=== PATIENT | female | born 1940 | race Caucasian/White ===

== ENCOUNTER 2020-07-21 02:13 | Inpatient (IN) | payer MEDICARE, OTHER, SELFPAY ==
[2020-07-21] VITALS (12 sets, daily range): BP systolic 133–185; BP diastolic 65–102; PULSE 86–106; RESP 17–20; TEMP 36.7–37.6; O2SAT 90–99
--- NOTE | 2020-07-21 02:31 | P.HP_ITS ---
Providers/Chief Complaint Admitting Physician: Mojgan Shaw MD Chief Complaint: bowell obstruction History of Present Illness Molly Rolle is a 80 year old female who presents today from [facility]. Patient is stating that she has had femoral hernia for last 4 years which she is attributing to her fairly active lifestyle, for last few days she has been expressing right lower quadrant pain, she also noticed some abdominal cramps with nausea and today around evening she had 1 episode of emesis. It was bilious. She did not notice any fever shortness of breath chest pain dysuria diarrhea. Her last bowel movement was today, she is able to pass flatus. Because of these concerns she went to the [facility] where CT scan revealed right femoral hernia, with small bowel loop, SBO transitioning at right femoral hernia. She was transferred to our hospital for further evaluation. Patient is denying previous history abdominal surgeries, she never experienced any bowel obstruction before. She is endorsing unintentional weight loss 15 to 20 pounds in last 6 months endorsing night sweats as well, he has never been diagnosed with any cancer her colonoscopies have been benign. At the other facility she received 1 L normal saline and fentanyl. I requested them to place NG tube to low intermittent suction. At the time of my evaluation patient was endorsing feeling better. No active abdominal pain. Nasogastric tube suctioning light brown content. Labs were reviewed which showed mild hypokalemia creatinine 1.13 otherwise unremarkable labs troponin not significant lipase 55, UA unremarkable, I will get lactic acid, will place general surgery consult Review of Systems Const: Reports: chills, body aches, change in appetite, change in weight and fatigue; Denies: fever(s) Eyes: Denies: change in vision ENMT: Denies: throat pain Card: Denies: chest pain Resp: Denies: dyspnea GI: Reports: abdominal pain, nausea, vomiting and change in bowel habits; Denies: diarrhea or constipation : Denies: flank pain Musc: Denies: neck pain Skin/Breast: Denies: rash Neuro: Denies: headache(s) Psych: Reports: anxiety Endo: Denies: polyuria Antelmo/Lymph: Denies: easy bruising All/Imm: Denies: urticaria Medications/Allergies Allergies Allergy/AdvReac Type Severity Reaction Status Date / Time No Known Allergies Allergy Verified 07/21/20 02:57 PFSH Acute PFSH: Medical History Anxiety Diverticulitis Dyslipidemia Femoral hernia Hypertension Melanotic stools Osteoporosis Surgical History Hx of colonoscopy Family History Denies family history of CAD (coronary artery disease) Social History Smoking and tobacco status: never smoked Alcohol intake: never Substance/Drug Use: never Household members: spouse Housing: House Physical Exam Narrative: EXAM NARRATIVE: Very pleasant elderly female Currently not in any active distress Has nasogastric tube to low intermittent suction draining brown content At the time evaluation she was in semi-Hendrix position saturating well on room air No active distress S1, S2 no tachycardia heart failure or murmur noted No acute respiratory distress, bilateral good airflow without adventitious rhonchi or crackles Abdomen soft mild tenderness on deep palpation in right lower quadrant area and periumbilical region, no active signs of peritonitis Right femoral hernia noted with bowel loop, nonreproducible, nontender on palpation, no pulsation around femoral hernia content Lower extremity no edema gangrene ulcer Appropriate mood and affect Clinically looks dehydrated A&P Assessment and plan (1) Small bowel obstruction: Status: Acute (2) Femoral hernia: Status: Acute Additional A&P Information Small bowel obstruction with transition point at right femoral hernia No active signs of incarcerated hernia Mild lower right lower quadrant pain with hyperactive bowel sounds We will check lactic acid, general surgery consult in the morning N.p.o., NG to low intermittent suction No previous history of abdominal surgeries patient is endorsing unintentional weight loss, night sweats and benign previous colonoscopies, she does carry history of diverticulosis/diverticulitis Conservative management for now with close monitoring Essential hypertension: Hold oral antihypertensives, would use IV as needed antihypertensives if needed Anxiety/depression: No acute exacerbation AMALIA which I think is secondary to dehydration Anticipating improvement with fluid resuscitation Full code DVT prophylaxis: SCDs would avoid anticoagulation in case she would require any surgical intervention N.p.o. Attestations Medical Necessity Statement*: Anticipating stay in the hospital to cross more than 2 midnights continued evaluation for femoral hernia with small bowel obstruction will need general surgery consult in the morning Time Spent in Patient Care: (>than 50% of time spent in counselling and/or direct pt care on unit) . 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
[2020-07-21] MEDS: dextrose 5%-sod chloride 0.9% 1,000 ML 75 ML IV ×2 (03:10→16:01)
[2020-07-21] MEDS: enoxaparin 40 mg/0.4 mL Syringe SUBCUT (03:13)
[2020-07-21 05:14] LABS: Basophils % 0.2 %; Hematocrit 45.5 % (37.0-47.0); Hemoglobin 14.7 g/dL (11.5-15.3); Lymphocytes # 0.9 10^3/uL (0.8-4.8); Lymphocytes % 8.1 %; Mean Corpuscular HGB Conc 32.3 g/dL (30.0-36.0); Mean Corpuscular Hemoglobin 30.1 pg (28.0-34.0); Mean Corpuscular Volume 93.2 fL (81-99); Monocytes # 0.6 10^3/uL (0.2-0.9); Monocytes % 5.4 %; Neutrophils # 9.07 10^3/uL (1.8-7.7); Neutrophils % 86.1 %; Nucleated Red Blood Cells % 0 %; Platelet Count 273 10^3/cmm (130-400); Red Blood Count 4.88 10^6/uL (4.1-5.3); Red Cell Distribution Width 13.2 % (12.1-15.1); White Blood Count 10.5 10^3/uL (4.0-10.0)
[2020-07-21 05:43] LABS: Lactate (Lactic Acid level) 1.5 mmol/L (0.5-2.2)
[2020-07-21 05:45] LABS: Alanine Aminotransferase 13 U/L (0-33); Alkaline Phosphatase 78 IU/L (35-105); Anion Gap 12.9 (5-19); Aspartate Amino Transferase 19 U/L (0-32); Blood Urea Nitrogen 21 mg/dL (8-23); Carbon Dioxide 30 mmol/L (22-29); Chloride 100 mmol/L (98-107); Globulin 2.6 g/dL (1.3-4.6); Glucose 148 mg/dL (65-115); Osmolality Calculated 294 mOsm/kg (285-295); Potassium 3.9 mmol/L (3.5-5.1); Sodium 139 mmol/L (136-145); Total Bilirubin 0.4 mg/dL (0.15-1.2); Total Protein 6.6 g/dL (6.6-8.7)
[2020-07-21 07:24] LABS: Erythrocyte Sedimentation Rate 6 mm/hr (0-15)
--- NOTE | 2020-07-21 09:09 | XR_ITS ---
WS: [id number] XR abdomen min 2V 25566 REASON FOR EXAM: POSSIBLE SBO FINDINGS: Nasogastric tube is in place the tip is in the position consistent with the body of the stomach. There is some gas in the colon with a moderate amount of stool. There is gas in the rectum. There are multiple dilated small bowel loops containing both air and fluid. There is residual contrast in the bladder and within the right renal collecting system proximal to a relative UPJ stenosis. XR/XR abdomen min 2V 26656 IMPRESSION: Bowel gas pattern compatible with distal small bowel obstruction.
--- NOTE | 2020-07-21 09:31 | PM.CONSULT ---
Providers/Reason For Consult Consulting Physican/Specialty*: Michell Hitchcock Reason for Consult*: Small bowel obstruction Attending Physician: Michell Hitchcock History of Present Illness History of Present Illness Molly Rolle is a 80 year old female who has had a swelling in the right groin for a few years but has never been symptomatic. She states she started noticing a bulge in the right groin which would not reduce and was associated with pain, nausea and vomiting since yesterday. The pain did not radiate, no aggravating or relieving factors. The pain is described as sharp. Review of Systems General: Reports: 10 or more systems reviewed and unremarkable except in HPI and below Meds/Allergies Home Medications and Allergies Allergies Allergy/AdvReac Type Severity Reaction Status Date / Time No Known Allergies Allergy Verified 07/21/20 02:57 Current Medications Current Medications Generic Name Dose Route Start Last Admin Trade Name Freq PRN Reason Stop Dose Admin Dextrose/Sodium Chloride 1,000 mls @ 75 mls/hr 07/21/20 02:30 07/21/20 03:10 Dextrose 5%-Sod Chloride 0.9% IV 75 mls/hr .[id number] SAM Administration PFSH Acute PFSH: Medical History Anxiety Diverticulitis Dyslipidemia Femoral hernia Hypertension Osteoporosis Surgical History Hx of colonoscopy Family History Denies family history of CAD (coronary artery disease) Social History Smoking and tobacco status: never smoked Alcohol intake: never Substance/Drug Use: never Household members: spouse Housing: House Vitals/I&O/Wt Last Vital Signs Temp 99.2 F 07/21/20 07:23 Pulse 104 H 07/21/20 07:23 Resp 18 07/21/20 07:23 BP 152/65 07/21/20 07:23 Pulse Ox 95 07/21/20 07:23 07/20/20 07/21/20 07/21/20 22:59 06:59 14:59 Output Total 100 / 100 300 / 300 Balance -100 / -100 -300 / -300 Weight last 48 hrs Weight 128 lb 6 oz Physical Exam Narrative: EXAM NARRATIVE: HEENT: Normocephalic Eye: Sclera /conjunctiva normal Respiratory and chest: Bilateral clear breath sounds on auscultation Cardiovascular: Normal S1 and S2 heart sounds Abdomen: Soft to palpation, incarcerated right femoral hernia, no overlying skin changes, no guarding or rigidity, rest of the abdomen is soft Neurological: Oriented to place person and time Skin: Intact, no lesions appreciated on gross exam A&P Assessment and plan (1) Small bowel obstruction: Small bowel obstruction secondary to incarcerated right femoral hernia Continue NG tube to low intermittent suction Abdominal series today Status: Acute (2) Femoral hernia: Plan for open repair of right femoral hernia with possible bowel resection today Procedure, risks, benefits and alternatives have been discussed with the patient who wishes to proceed with surgery. 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
--- NOTE | 2020-07-21 10:41 | PC.NURSE ---
1040-PT REQUESTED I CALL HER DAUGHTER HALEY TO LET HER KNOW THAT SHE IS HAVING SURGERY TODAY AROUND 11, ATTEMPTED TO CONTACT HER..NO ANSWER.
--- NOTE | 2020-07-21 10:46 | PC.CHAP ---
Pastoral Care Encounter/Spiritual Assessment Type of Contact [] Declined sem manager visit [] Patient/Family/Request visit [] Outpatient visit [x] Follow-up visit [] Physician referral [] Code/Alert [] Routine visit [] Staff referral [] Actively dying [] Patient sleeping [] Family support [] [] Out of room [] Palliative care [] [] Receiving care in room [] Pre-surgical visit [] Trauma [] Long length of stay [] ICU visit [] Other: Relational/Emotional Strength [] Patient feels connected with others/family/visitors/staff [] Distress [] Loneliness/isolation [] Abandonment Spirituality of Patient [] Person of Stephanie [] Attends Alevism of their Stephanie [] Believes in Prayer [] Reads Bible or Gnosticism materials [] There are Spiritual issues to be addressed Senior Benefits Specialist Interventions [] Prayer [] Active listening [] Non-anxious presence [] Spiritual/emotional support [] Crisis/trauma care [] Spiritual counseling [] Bereavement support [] Provided bereavement packet [] Provided Bible/devotional materials [] Provided toy/stuffed animal, coloring book to patient or family member [] Provided Communion [] Anointing/[place] [] Salvation [] Completed spiritual assessment [] Other: Impact on Illness or Injury [] Angry [] Fearful [] Anxious [] Often cries [] Exhaustion [] Unable to work [] Unable to attend methodist [] Unable to walk/stand [] Unable to read [] Unable to drive [] Unable to eat/drink [] Unable to sleep [] Unable to be with family [] Patient intubated [] Other: Summary Follow-up visit Time spent with patient 5 mins
[2020-07-21] MEDS: sodium chloride 0.9% 1,000 ML 30 ML IV (16:59)
--- NOTE | 2020-07-21 17:01 | PC.NURSE ---
PT OFF UNIT FOR SURGERY
--- NOTE | 2020-07-21 17:06 | ANES.PREANE2 ---
Pre-Anesthetic Assessment Pre-Anesthetic Assessment: Height/Weight: Weight 58.23 kg Temp Pulse Resp BP Pulse Ox 98.0 F 103 H 18 156/102 97 07/21/20 15:20 07/21/20 17:00 07/21/20 17:00 07/21/20 17:00 07/21/20 17:00 Preop Diagnosis: Incarcerated right femoral hernia Proposed Procedure: Operation Date: 07/21/20 17:10 Proposed Procedures p Incisional Hernia Repair(Right) - Alfonzo Horton MD Was Beta Marlena taken within 24 hours: N/A Last intake: Intake Last Liquid Date 07/20/20 Last Liquid Time 14:00 Last Solid Date 07/20/20 Last Solid Time 14:00 Social: Social History: No alcohol and No tobacco Exam: Pre-Anes Outpt Exam: alert, oriented x 3, clear to auscultation bilaterally and regular rate & rhythm Airway: Submandibular: WNL Cervical ROM: WNL MP: 2 Additional comments: Poor dentition, upper denture, lower missing several Pulmonary: Pulmonary: None reported CV/HEM: CV/HEM: HTN : : None reported Hepatic: Hepatic: None reported GI: Comments: incarcerated hernia--NG tube Metabolic: Metabolic: None reported Musc/skel: Musc/skel: None reported Neuropsych: Neuropsych: Depression Anesthetic Plan: ASA status: 3 Anesthesia: General Other: Mod RSI Risk of > 500 ml blood loss (7ml/kg in children): No Meds/Allergies Current Medications: Current Medications Generic Name Dose Route Start Last Admin Trade Name Freq PRN Reason Stop Dose Admin Dextrose/Sodium Ch loride 1,000 mls @ 75 ml s/hr 07/21/20 02:30 07/21/20 16:01 Dextrose 5%-Sod Chloride 0.9% IV 75 mls/hr .[id number] SAM Administration Sodium Chloride 1,000 mls @ 30 ml s/hr 07/21/20 16:45 07/21/20 16:59 Sodium Chloride 0.9% IV 07/22/20 16:44 30 mls/hr .Q24H SAM Administration PFSH Anesthesia PFSH: Medical History Anxiety Diverticulitis Dyslipidemia Femoral hernia Hypertension Osteoporosis Surgical History Hx of colonoscopy Family History Denies family history of CAD (coronary artery disease) Social History Smoking and tobacco status: never smoked Alcohol intake: never Substance/Drug Use: never Household members: spouse Housing: House Data Anesthesia CBC & Chem 7: 07/21/20 05:01 07/21/20 05:01 Other Labs: Laboratory Results - last 48 hr 07/21/20 07/21/20 07/21/20 05:01 05:01 05:01 WBC 10.5 H RBC 4.88 Hgb 14.7 Hct 45.5 MCV 93.2 MCH 30.1 MCHC 32.3 RDW 13.2 Plt Count 273 MPV 10.0 Neut % (Auto) 86.1 Lymph % (Auto) 8.1 [place] % (Auto) 5.4 Eos % (Auto) 0.0 Baso % (Auto) 0.2 Neut # (Auto) 9.07 H Lymph # (Auto) 0.9 [place] # (Auto) 0.6 Eos # (Auto) 0.0 Baso # (Auto) 0.0 Nucleated RBC % (auto) 0 Nucleated RBCs # 0.0 ESR Sodium 139 Potassium 3.9 Chloride 100 Carbon Dioxide 30 H Anion Gap 12.9 BUN 21 Creatinine 0.9 GFR Calculation Not Reportable Glucose 148 H Calculated Osmolality 294 Lactate 1.5 Calcium 9.0 Total Bilirubin 0.4 AST 19 ALT 13 Alkaline Phosphatase 78 Total Protein 6.6 Albumin 4.0 Globulin 2.6 07/21/20 05:01 WBC RBC Hgb Hct MCV MCH MCHC RDW Plt Count MPV Neut % (Auto) Lymph % (Auto) [place] % (Auto) Eos % (Auto) Baso % (Auto) Neut # (Auto) Lymph # (Auto) [place] # (Auto) Eos # (Auto) Baso # (Auto) Nucleated RBC % (auto) Nucleated RBCs # ESR 6 Sodium Potassium Chloride Carbon Dioxide Anion Gap BUN Creatinine GFR Calculation Glucose Calculated Osmolality Lactate Calcium Total Bilirubin AST ALT Alkaline Phosphatase Total Protein Albumin Globulin Cardiac Studies: No Data to Display
--- NOTE | 2020-07-21 21:38 | P.OP_ITS ---
Operative Report Date of procedure: July 21, 2020 Pre-op Diagnosis: Incarcerated right femoral hernia Post-op Diagnosis: Incarcerated right femoral hernia with bowel obstruction No evidence of ischemia Procedure Done: Open repair of right femoral hernia with Bard soft mesh Specimens removed/disposition: Hernia sac Surgeon: Alfonzo Horton Anesthesia: General Condition: stable Disposition: PACU Procedure: A 5 cm incision was made over the right inguinal canal extending inferior to the inguinal ligament using 15 blade, the subcutaneous tissue, Timothy's fascia divided using electrocautery until the external oblique ap oneurosis was identified. Using a 15 blade, a small opening was made in the external oblique aponeurosis along the length of the fibers, this was grasped with hemostats and opened using Metzenbaum scissors medially to the external ring and laterally beyond the internal ring. The round ligament was identified and dissected free from the wall of the inguinal canal. The transversalis fascia was opened to identify the hernia sac which was dissected free from the femoral vein and artery laterally. The femoral hernia sac was dissected free from the surrounding subcutaneous tissue inferior to the inguinal ligament and the sac was opened. The sac was reduced through the inguinal canal and opened, the dilated small bowel and the collapsed small bowel was identified with a transition point noted. There was no signs of bowel ischemia noted. The hernia sac was excised and closed with pursestring 2-0 Vicryl suture. The inguinal ligament was approximated to the pectineal fascia using running 2-0 Prolene suture and was reinforced with the small Bard plug. The Bard mesh was placed on the posterior wall of the inguinal canal and a few 2-0 Prolene sutures were placed over the internal oblique muscles. The inferior edge of the mesh was extended into the preperitoneal space to cover the femoral defect. And using 2- 0 Prolene suture the medial edge of the mesh were sutured to the fascia o verlying the pubic tubercle. The wound was copiously irrigated with saline, good hemostasis noted and the external oblique aponeurosis was closed with running 2-0 Vicryl suture, Timothy's fascia approximated using running 3-0 Vicryl suture, and skin was closed using running subcuticular 4-0 Monocryl suture and Dermabond. 20 mL of 0.5% Marcaine was infiltrated around the incision.
--- NOTE | 2020-07-21 21:45 | SUR.PHASEI ---
PT SLEEPY BUT AWAKES TO VOICE PT ON RA TRIAL NG TO RT NARE TAPED SECURELY, RT LOWER ABD INC D/I PT WITH GOOD RESP EFFORT PT PREFERS MASK OFF SATS MAINTAINED AT 93% PT THEN PLACED ON 3LNC SATS QUICKLY UP TO 95%
--- NOTE | 2020-07-21 22:27 | SUR.PHASEI ---
2210 PT TO FLOOR PER CART PT AWAKE ALERT MOVES SELF TO BED WITH ASSIST OF 2 NURSES, PT NG INTACT AND SECIURELY TAPED AND CLAMPED , ABD FLAT SOFT DRESSING OF EXOFIN D/I SCDS ON HANDOFF AT BEDSIDE.
[2020-07-21] MEDS: famotidine 20 mg/2 mL INJ IVP (23:04)
[2020-07-21] MEDS: D5-NS 0.45% + KCL 20 mEq 20 MEQ/1,000 ML BAG 100 MEQ IV (23:14)
[2020-07-21] MEDS: lactulose oral liq 20 gm/30 mL UDC 10 GM PO (23:15)
[2020-07-21] MEDS: metroNIDAZOLE IV 500 MG/100 ML PREMIX 100 MG IV (23:16)
[2020-07-22] VITALS (10 sets, daily range): BP systolic 123–171; BP diastolic 67–76; PULSE 82–98; RESP 17–18; TEMP 36.8–37.5; O2SAT 93–97
[2020-07-22 04:05] LABS: Basophils % 0.2 %; Hematocrit 43.1 % (37.0-47.0); Hemoglobin 13.6 g/dL (11.5-15.3); Lymphocytes # 0.8 10^3/uL (0.8-4.8); Mean Corpuscular HGB Conc 31.6 g/dL (30.0-36.0); Mean Corpuscular Volume 94.9 fL (81-99); Mean Platelet Volume 10.3 fL (7.4-10.4); Monocytes # 1.2 10^3/uL (0.2-0.9); Monocytes % 11.7 %; Neutrophils % 79.8 %; Nucleated Red Blood Cells % 0 %; Platelet Count 206 10^3/cmm (130-400); Red Blood Count 4.54 10^6/uL (4.1-5.3); Red Cell Distribution Width 13.3 % (12.1-15.1); White Blood Count 9.9 10^3/uL (4.0-10.0)
[2020-07-22 04:39] LABS: Blood Urea Nitrogen 16 mg/dL (8-23); Calcium 8.2 mg/dL (8.5-10.5); Carbon Dioxide 26 mmol/L (22-29); Chloride 107 mmol/L (98-107); Glucose 169 mg/dL (65-115); Osmolality Calculated 295 mOsm/kg (285-295); Sodium 140 mmol/L (136-145)
[2020-07-22] MEDS: ceFAZolin 1,000 MG in sodium chloride 0.9% (plus) 50 ML 100 MG IV ×2 (04:50→13:26)
--- NOTE | 2020-07-22 05:57 | ANE.PACU2 ---
Inpatient post-anesthesia follow up: Airway intact: Yes Vital signs: Temperature 98.2 F Pulse Rate 93 Respiratory Rate 18 Blood Pressure 147/67 Pulse Oximetry 96 Oxygen Delivery Me thod Room Air Oxygen Flow Rate 3 Fraction of Inspir ed Oxygen Hydration adequate: Yes Nausea and vomiting: No Pain level: 1 Mental status: Baseline
[2020-07-22] MEDS: metroNIDAZOLE IV 500 MG/100 ML PREMIX 100 MG IV (06:48)
[2020-07-22] MEDS: lactulose oral liq 20 gm/30 mL UDC 10 GM PO ×3 (11:46→21:39)
[2020-07-22] MEDS: famotidine 20 mg/2 mL INJ IVP ×2 (11:46→21:37)
[2020-07-22] MEDS: D5-NS 0.45% + KCL 20 mEq 20 MEQ/1,000 ML BAG 100 MEQ IV (11:47)
--- NOTE | 2020-07-22 12:22 | P.PN_ITS ---
Subjective Subjective: Interval history: Patient was feeling uncomfortable Wanting NG out low grade temp no respiratory complaints. Vitals/I&O/Wt Last Vital Signs Temp 99.2 F 07/22/20 15:34 Pulse 98 07/22/20 15:34 Resp 18 07/22/20 15:34 BP 171/72 07/22/20 15:34 Pulse Ox 93 07/22/20 15:34 07/22/20 07/22/20 07/22/20 06:59 14:59 22:59 Intake Total 151.667 / 1175.417 998.333 / 998.333 Output Total 500 / 810 500 / 500 Balance -348.333 / 365.417 498.333 / 498.333 Weight last 48 hrs Weight 58.23 kg Physical Exam Narrative: EXAM NARRATIVE: General : alert awake oriented NAD HEENT : NG in place Chest : Non-labored respiration CVS : NSR ABD- Post Op ext - No edema Data : 07/22/20 03:42 07/22/20 03:42 A&P Assessment and plan (1) Incarcerated femoral hernia: Status: Acute (2) Hypertension: Status: Acute (3) Anxiety: Status: Acute Incarcerated Femoral hernia S/p Open femoral hernia with mesh - POD 1 - NG clamped however patient pulled - Continue CLD - Post op management per surgery - Started on lactulose 15cc/BID / Fleet enema/ mag citrate x 1 - Pain control - Continue IVF ) D5 - 0.45 at 100 cc/hr - Can wean fluid as diet improves. Hypertension - Losartan 50 mg Po daily restarted Anxiety - Paroxetine 40 mg PO daily Gi ppx - Pepcid 20 mg IV BID DVT ppx - SCDS only - Start heparin if ok with surgery Attestations Medical Necessity Statement*: Continue hospitalization for post op care. 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
--- NOTE | 2020-07-22 12:30 | PC.CHAP ---
Pastoral Care Encounter/Spiritual Assessment Type of Contact [] Declined double back operator visit [] Patient/Family/Request visit [] Outpatient visit [] Follow-up visit [] Physician referral [] Code/Alert [xx] Routine visit [] Staff referral [] Actively dying [] Patient sleeping [] Family support [] [] Out of room [] Palliative care [] [] Receiving care in room [] Pre-surgical visit [] Trauma [] Long length of stay [] ICU visit [] Other: Relational/Emotional Strength [] Patient feels connected with others/family/visitors/staff [] Distress [] Loneliness/isolation [] Abandonment Spirituality of Patient [xx] Person of Stephanie [] Attends Synagogue of their Stephanie [xx] Believes in Prayer [] Reads Bible or Yarsanism materials [] There are Spiritual issues to be addressed Bush Regenerator Interventions [xx] Prayer [xx] Active listening [xx] Non-anxious presence [] Spiritual/emotional support [] Crisis/trauma care [] Spiritual counseling [] Bereavement support [] Provided bereavement packet [] Provided Bible/devotional materials [] Provided toy/stuffed animal, coloring book to patient or family member [] Provided Communion [] Anointing/[place] [] Salvation [xx] Completed spiritual assessment [] Other: Impact on Illness or Injury [] Angry [] Fearful [] Anxious [] Often cries [] Exhaustion [xx] Unable to work [xx] Unable to attend rastafarian [] Unable to walk/stand [] Unable to read [xx] Unable to drive [] Unable to eat/drink [] Unable to sleep [xx] Unable to be with family [] Patient intubated [] Other: Summary Short visit/prayer as Doctor arrived to check on her. Time spent with patient 3 minutes
[2020-07-22] MEDS: magnesium citrate Btl 296 mL 150 ML PO (16:51)
[2020-07-22] MEDS: Fleet Enema 133 mL Enema PR (16:52)
--- NOTE | 2020-07-22 17:01 | PM.PN ---
Subjective Subjective: Interval history: Patient denies any nausea or vomiting, no flatus or BM, has some right lower quadrant pain Vitals/I&O/Wt Last Vital Signs Temp 99.2 F 07/22/20 15:34 Pulse 98 07/22/20 15:34 Resp 18 07/22/20 15:34 BP 171/72 07/22/20 15:34 Pulse Ox 93 07/22/20 15:34 07/22/20 07/22/20 07/22/20 06:59 14:59 22:59 Intake Total 151.667 / 1175.417 998.333 / 998.333 Output Total 500 / 810 500 / 500 Balance -348.333 / 365.417 498.333 / 498.333 Weight last 48 hrs Weight 128 lb 6 oz Physical Exam Narrative: EXAM NARRATIVE: Abdomen: Soft, mildly tender, nondistended, incision clean dry and intact right inguinal canal Data : 07/22/20 03:42 07/22/20 03:42 A&P Assessment and plan (1) History of femoral hernia repair: 80-year-old female status post open femoral hernia repair with mesh for incarcerated hernia causing small bowel obstruction, currently stable Clamp NG tube Start clear liquid diet Ambulate ad isabel. Continue IV fluids Lactulose 15 cc p.o. twice daily Fleets enema today 1 bottle of magnesium citrate Patient will need greater than 2 nights of inpatient stay Status: Acute Attestations Medical Necessity Statement*: Small bowel obstruction requiring continued inpatient stay Coding Level of Care Code Acute Hospice Admitting Clerk for Mirian Callejas Diagnoses History of femoral hernia repair Z98.890; Z87.19
--- NOTE | 2020-07-22 17:56 | PC.NURSE ---
ng tube form tamper reported that pt was holding ng tube and c/o it falling put and pt pushing it back in movie writer entered room to pt holding ng in hand barley in nose. ng was finished taken out. messaged and called Dr. Horton and Dr. Hitchcock, no response. pt received laxatives and enema with results of a moderate dark formed stool
[2020-07-22] MEDS: diphenhydrAMINE 50 mg/mL SDV 1mL 12.5 MG IVP (21:37)
[2020-07-22] MEDS: PARoxetine 20 mg Tablet 40 MG PO (21:37)
[2020-07-22] MEDS: losartan 50 mg Tablet PO (21:37)
[2020-07-22] MEDS: HYDROcodone-acetaminophen 5-325 mg Tablet 1 TAB PO (21:38)
[2020-07-23] VITALS (9 sets, daily range): BP systolic 128–155; BP diastolic 54–76; PULSE 80–94; RESP 17–20; TEMP 36.3–37.6; O2SAT 94–97
[2020-07-23] MEDS: morphine 4 mg/mL SDV 1 mL 2 MG IVP (00:10)
[2020-07-23] MEDS: haloperidol inj 5 mg/mL INJ 1 mL 2 MG IM (01:59)
[2020-07-23] MEDS: D5-NS 0.45% + KCL 20 mEq 20 MEQ/1,000 ML BAG 100 MEQ IV (04:23)
[2020-07-23 05:41] LABS: Basophils % 0.5 %; Eosinophils # 0.1 10^3/uL (0.0-0.8); Eosinophils % 2.2 %; Hematocrit 37.2 % (37.0-47.0); Hemoglobin 11.5 g/dL (11.5-15.3); Lymphocytes # 1.2 10^3/uL (0.8-4.8); Lymphocytes % 19.4 %; Mean Corpuscular HGB Conc 30.9 g/dL (30.0-36.0); Mean Corpuscular Hemoglobin 30.3 pg (28.0-34.0); Mean Corpuscular Volume 97.9 fL (81-99); Mean Platelet Volume 10.6 fL (7.4-10.4); Monocytes % 15.2 %; Neutrophils % 62.5 %; Nucleated Red Blood Cells % 0 %; Platelet Count 177 10^3/cmm (130-400); Red Cell Distribution Width 13.2 % (12.1-15.1); White Blood Count 6.2 10^3/uL (4.0-10.0)
[2020-07-23 06:23] LABS: Anion Gap 10.7 (5-19); Blood Urea Nitrogen 10 mg/dL (8-23); Calcium 7.8 mg/dL (8.5-10.5); Carbon Dioxide 28 mmol/L (22-29); Chloride 105 mmol/L (98-107); Glucose 109 mg/dL (65-115); Osmolality Calculated 290 mOsm/kg (285-295); Potassium 3.7 mmol/L (3.5-5.1); Sodium 140 mmol/L (136-145)
--- NOTE | 2020-07-23 09:00 | PM.PN ---
Subjective Subjective: Interval history: Patient denies any abdominal pain, nausea, vomiting, had multiple small bowel movements yesterday. Patient was confused overnight and pulled out her NG tube. Vitals/I&O/Wt Last Vital Signs Temp 98.3 F 07/23/20 08:11 Pulse 91 07/23/20 08:11 Resp 18 07/23/20 08:11 BP 128/60 07/23/20 08:11 Pulse Ox 97 07/23/20 08:11 07/22/20 07/23/20 07/23/20 22:59 06:59 14:59 Intake Total 1000 / 2478.333 480 / 2478.333 Output Total 500 / 1500 500 / 1500 Balance 500 / 978.333 -20 / 978.333 Physical Exam Narrative: EXAM NARRATIVE: Abdomen: Soft, nondistended, minimally tender, incision clean dry and intact, postop ecchymosis around the incision Data : 07/23/20 05:10 07/23/20 05:10 A&P Assessment and plan (1) History of femoral hernia repair: 80-year-old female status post open femoral hernia repair with mesh for incarcerated hernia causing small bowel obstruction, currently stable Advance to full liquid diet DC IV fluids DC morphine and Schneider Lactulose 15 cc p.o. twice daily 1 bottle of magnesium citrate today Patient will need greater than 2 nights of inpatient stay, hopefully she can go home tomorrow Status: Acute Attestations Medical Necessity Statement*: Status post femoral hernia repair for incarcerated hernia causing small bowel obstruction Coding Level of Care Code Acute Avionics System Engineer for g Fwd Diagnoses History of femoral hernia repair Z98.890; Z87.19
[2020-07-23] MEDS: magnesium citrate Btl 296 mL 150 ML PO (09:46)
[2020-07-23] MEDS: lactulose oral liq 20 gm/30 mL UDC 10 GM PO ×3 (09:46→23:10)
[2020-07-23] MEDS: famotidine 20 mg/2 mL INJ IVP ×2 (09:55→23:41)
--- NOTE | 2020-07-23 14:02 | P.PN_ITS ---
Subjective Subjective: Interval history: Doing well post op Pain undercontrol No reported nausea or vomiting No Chest pain or dyspnea Noted BM last evening. Vitals/I&O/Wt Last Vital Signs Temp 97.3 F L 07/23/20 12:02 Pulse 80 07/23/20 12:02 Resp 18 07/23/20 12:02 BP 138/76 07/23/20 12:02 Pulse Ox 94 07/23/20 12:02 07/22/20 07/23/20 07/23/20 22:59 06:59 14:59 Intake Total 999 / 1997.333 480 / 2478.333 660 / 660 Output Total 500 / 1000 500 / 1500 Balance 500 / 998.333 -20 / 978.333 660 / 660 Physical Exam Narrative: EXAM NARRATIVE: General : alert awake oriented NAD HEENT : NG in place Chest : Non-labored respiration CVS : NSR ABD- Post Op ext - No edema Data : 07/23/20 05:10 07/23/20 05:10 A&P Assessment and plan (1) Incarcerated femoral hernia: Status: Acute (2) Hypertension: Status: Acute (3) Anxiety: Status: Acute Incarcerated Femoral hernia S/p Open femoral hernia with mesh - POD 2 - Tolerated CLD - > advanced to FLD today - Post op management per surgery - Pain control - IVF now stopped - Repeat labs in AM Hypertension - Losartan 50 mg Po daily restarted Anxiety - Paroxetine 40 mg PO daily Gi ppx - Pepcid 20 mg IV BID DVT ppx - SCDS only - Start heparin if ok with surgery Attestations Medical Necessity Statement*: Patient required additional day in hospital for increasing oral intake. Anticipating discharge in 1 day. Time Spent in Patient Care: Greater than 35 minutes (>than 50% of time spent in counselling and/or direct pt care on unit) . Coding Level of Care Code Acute Claims Service Adjustor for Chg Fwd Diagnoses Incarcerated femoral hernia K41.30 Hypertension I10 Anxiety F41.9
[2020-07-23] MEDS: losartan 50 mg Tablet PO (23:10)
[2020-07-23] MEDS: PARoxetine 20 mg Tablet 40 MG PO (23:10)
[2020-07-24] VITALS: BP 142/66; PULSE 79; RESP 16; TEMP 36.9; O2SAT 95
[2020-07-24 05:03] VITALS: BP 160/75; PULSE 72; RESP 18; TEMP 36.8; O2SAT 95
[2020-07-24 05:13] LABS: Basophils % 0.6 %; Eosinophils # 0.2 10^3/uL (0.0-0.8); Eosinophils % 3.7 %; Hematocrit 36.3 % (37.0-47.0); Hemoglobin 11.4 g/dL (11.5-15.3); Lymphocytes # 1.1 10^3/uL (0.8-4.8); Mean Corpuscular HGB Conc 31.4 g/dL (30.0-36.0); Mean Corpuscular Hemoglobin 30.1 pg (28.0-34.0); Mean Corpuscular Volume 95.8 fL (81-99); Mean Platelet Volume 10.5 fL (7.4-10.4); Monocytes # 0.8 10^3/uL (0.2-0.9); Monocytes % 15.7 %; Neutrophils # 2.99 10^3/uL (1.8-7.7); Neutrophils % 58.8 %; Nucleated Red Blood Cells % 0 %; Platelet Count 163 10^3/cmm (130-400); Red Blood Count 3.79 10^6/uL (4.1-5.3); Red Cell Distribution Width 12.9 % (12.1-15.1); White Blood Count 5.1 10^3/uL (4.0-10.0)
[2020-07-24 05:33] LABS: Anion Gap 8.5 (5-19); Blood Urea Nitrogen 6 mg/dL (8-23); Calcium 8.1 mg/dL (8.5-10.5); Carbon Dioxide 29 mmol/L (22-29); Chloride 106 mmol/L (98-107); Glucose 105 mg/dL (65-115); Osmolality Calculated 288 mOsm/kg (285-295); Potassium 3.5 mmol/L (3.5-5.1); Sodium 140 mmol/L (136-145)
--- NOTE | 2020-07-24 08:08 | PM.PN ---
Subjective Subjective: Interval history: Patient doing well, had multiple bowel movements yesterday, tolerating full liquid diet, no nausea or vomiting, minimal abdominal pain Vitals/I&O/Wt Last Vital Signs Temp 98.2 F 07/24/20 05:03 Pulse 72 07/24/20 05:03 Resp 18 07/24/20 05:03 BP 160/75 07/24/20 05:03 Pulse Ox 95 07/24/20 05:03 07/23/20 07/24/20 07/24/20 22:59 06:59 14:59 Intake Total 480 / 1620 480 / 1620 Output Total 200 / 800 600 / 800 Balance 280 / 820 -120 / 820 Physical Exam Narrative: EXAM NARRATIVE: abdomen: Soft, nontender, nondistended, incisions healing well, has some postop edema Data : 07/24/20 04:40 07/24/20 04:40 A&P Assessment and plan (1) History of femoral hernia repair: 80-year-old female status post open femoral hernia repair with mesh for incarcerated hernia causing small bowel obstruction, currently stable Advance to GI soft diet DC home today as patient is keen to go home Status: Acute Attestations Medical Necessity Statement*: Status post femoral hernia repair Coding Level of Care Code Acute Prestressed Concrete Laborer for Chg Fwd Diagnoses History of femoral hernia repair Z98.890; Z87.19
[2020-07-24] MEDS: famotidine 20 mg/2 mL INJ IVP (09:48)
--- NOTE | 2020-07-24 10:53 | PC.SOCIAL ---
IMM Update Pg. 2 of IMM updated and reviewed with patient who verbalized understanding. Copy provided
--- NOTE | 2020-07-24 12:07 | PC.NURSE ---
patient and given discharge instructions and verbalized understanding of instructions. patient's iv removed and covered with 2x2 and coban. patient taken to private vehicle via wheelchair by staff.
[2020-07-24 12:11] VITALS: BP 160/75; PULSE 72; RESP 18; TEMP 36.8; O2SAT 95
--- NOTE | 2020-07-24 19:56 | P.DS_ITS ---
Discharge Providers Date of Admission: 07/21/20 02:13 Date of Discharge: July 24, 2020 Attending Provider at Admission: Mojgan Shaw MD Attending Provider at Discharge: Michell Hitchcock Diagnoses at Discharge Discharge Diagnosis (1) History of femoral hernia repair: Status: Acute Reason for Visit Reason for Visit: bowell obstruction Hospital Course Hospital Course 80 year old with past medical history of anxiety and hypertension who presented to the ER with lower abdominal/right groin pain. Ct abdomen pelvis was performed which noted small bowel obstruction due to incarcerated right femoral hernia. NG tube was placed to LIS. General surgery was consulted and patient was taken to or for open repair of femoral hernia with mesh on 07/21. Post operative course remained stable. Patient was started on bowel regimen. noted to have multiple bowel movements. Pain had resolved. Tolerated PO intake. Cleared for discharge from surgery stand point. Was prescribed Levaquin 500 mg PO daily and flagyl 500 mg Po q8hr for 5 days. Discharged in stable condition. Physical Exam Narrative: EXAM NARRATIVE: General : alert awake oriented NAD HEENT : Grossly unremarkable Chest : Non-labored respiration CVS : NSR ABD- Post Op ext - No edema Discharge Data Data Completed and Pending: Completed Studies During Hospitalization Category Date Time Status XR abdomen min 2V 86707 Urgent Exams 07/21/20 09:09 Completed Pending at discharge Category Date Time Status Pathology: Surgic al [PTH] Routine Pth 07/21/20 21:37 Received Labs from last 24 hours 07/24/20 07/24/20 04:40 04:40 WBC 5.1 RBC 3.79 L Hgb 11.4 L Hct 36.3 L MCV 95.8 MCH 30.1 MCHC 31.4 RDW 12.9 Plt Count 163 MPV 10.5 H Neut % (Auto) 58.8 Lymph % (Auto) 21.0 [place] % (Auto) 15.7 Eos % (Auto) 3.7 Baso % (Auto) 0.6 Neut # (Auto) 2.99 Lymph # (Auto) 1.1 [place] # (Auto) 0.8 Eos # (Auto) 0.2 Baso # (Auto) 0.0 Nucleated RBC % (a uto) 0 Nucleated RBCs # 0.0 Sodium 140 Potassium 3.5 Chloride 106 Carbon Dioxide 29 Anion Gap 8.5 BUN 6 L Creatinine 0.6 GFR Calculation Not Reportable Glucose 105 Calculated Osmolal ity 288 Calcium 8.1 L Vitals: Last Vital Signs Temp 98.2 F 07/24/20 12:11 Pulse 72 07/24/20 12:11 Resp 18 07/24/20 12:11 BP 160/75 07/24/20 12:11 Pulse Ox 95 07/24/20 12:11 Discharge Plan Discharge Patient Disposition: Home Condition: Stable Prescriptions: New Flagyl 500 mg tablet 500 mg PO Q8H 5 Days Qty: 15 RF: 0 lactulose 10 gram/15 mL solution 15 ml PO BID Qty: 237 RF: 2 levofloxacin 500 mg tablet 500 mg PO DAILY 5 Days RF: 0 Continued losartan 50 mg tablet 50 mg PO DAILY@20 RF: 0 paroxetine HCl 40 mg tablet 40 mg PO DAILY@20 RF: 0 Discontinued hyoscyamine sulfate 0.125 mg tablet 0.125 mg PO BID PRN (Reason: Pain) RF: 0 aspirin 81 mg Tablet,Chewable 81 mg PO DAILY@20 RF: 0 Discharge Orders: Discharge Order (Routine); Ordered 07/24/20 Ordered By: Michell Hitchcock Referrals: Alfonzo Horton MD [Physician] - 2 weeks ([facility] will call you with an appointment Saturday to see Dr. Horton within 2 weeks.) Discharge Diet: Advance as tolerated Discharge Activity: Resume usual activity Patient Instructions: Metronidazole (By mouth), Lactulose (By mouth), Levofloxacin (By mouth), Inguinal Hernia Activity Restrictions/Additional Instructions: 1. Up and walking as tolerated. 2. Ok to shower in 48 hours after surgery. 3. Remove Dermabond dressing in 7-10 days. 4. Do not lift more than 10 pounds. 5. Do not operate heavy machinery or drive while using pain medications. 6. Advised to return to ER or contact my office if there are any signs of infection like, increasing pain, fevers, chills, redness or drainage of pus. Discharge Attestations Time Spent in Discharge Care*: greater than 30 min Specific Discharge Activities: educating patient, discussing with renal case manager/social workers/dc planners, documenting/other paperwork and evaluating patient/reviewing data Status at Discharge: Cognitive status at discharge: cognitively intact , Behavioral status at discharge: cooperative , Functional status at discharge: independent ambulation Overall status at discharge: patient is back to baseline Quality Metrics Clinical Quality Measures During this hospital stay, did patient experience: None Coding Level of Care Code Acute Senior Manufacturing Engineer for Chg Fwd Diagnoses History of femoral hernia repair Z98.890; Z87.19
== END 2020-07-24 12:12 | disposition home or self-care (01) | DRG 351 ==
PROVIDERS: Surgery; Admitting Provider Internal Medicine; Visit Provider Hospitalist
PROC: 0YU70JZ Supplement Right Femoral Region with Synthetic Substitute, Open Approach (ICD-10-PCS; CPT 49550; principal; 2020-07-21 17:10)
DX: K41.30 Unilateral femoral hernia, with obstruction, without gangrene, not specified as recurrent (principal); K56.609 Unspecified intestinal obstruction, unspecified as to partial versus complete obstruction; E87.6 Hypokalemia; F41.8 Other specified anxiety disorders; E78.5 Hyperlipidemia, unspecified; I10 Essential (primary) hypertension; M81.0 Age-related osteoporosis without current pathological fracture
CPT/HCPCS: 12345; 36415; 74019; 80048; 80053; 83605; 85025; 85651; 88302; 94664; 96372; 96375; 97161; 97530; J0330; J0690; J1100; J1200; J1630; J1650; J2270; J2370; J2405; J2704; J3010; J3490; J7030; S0030

== ENCOUNTER 2021-06-21 15:06 | Outpatient (CLI) | payer MEDICARE, SELFPAY ==
--- NOTE | 2021-06-21 15:45 | CT_ITS ---
WS: [id number] CT SINUSES TECHNIQUE: Noncontrast CT of the paranasal sinuses with coronal and sagittal reformatted images. CLINICAL INFORMATION: Sinus pain COMPARISON: None. DLP: [address] scans at [facility] use at least one of these dose optimization techniques: automated e xposure control; mA and/or kV adjustment per patient size (includes targeted exams where dose is matc hed to clinical indication); or iterative reconstruction. FINDINGS: Mild right to left nasal septal deviation with leftward directed spur. Nasal septal deviation measure s 3 mm. Paranasal sinuses are well aerated. Mastoid air cells well aerated. Normal posterior nasophar ynx. Normal parapharyngeal fat. Mild narrowing of the ostiomeatal units bilaterally. Small bilateral conch a bullosa. Maxillary sinuses are well aerated. Small retention cyst left maxillary sinus.. Ethmoid ai r cells and frontal sinuses are well aerated. Normal sphenoid sinuses with a tiny retention cyst. Sph enoid ostia are patent. CT/CT sinus wo con* [id number] IMPRESSION: 1. Paranasal sinuses are well aerated. 2. Tiny retention cyst in the left maxillary sinus and sphenoid sinus. 3. Minimal right to left nasal deviation measuring 3 mm. 4. Mastoid air cells are well aerated.
== END 2021-06-21 15:07 | disposition home or self-care (01) ==
PROVIDERS: Visit Provider Otolaryngology
DX: J34.89 Other specified disorders of nose and nasal sinuses (principal); M27.40 Unspecified cyst of jaw; J34.2 Deviated nasal septum
CPT/HCPCS: 70486

== ENCOUNTER 2022-06-08 08:00 | Outpatient (CLI) | payer MEDICARE, OTHER, SELFPAY ==
--- NOTE | 2022-06-08 08:53 | MR_ITS ---
WS: [id number] MRI HEAD WITHOUT CONTRAST TECHNIQUE: Sagittal T1, T2 axial, T2 axial FLAIR, axial and coronal T1 images, axial susceptibility w eighted imaging, axial diffusion weighted images, and coronal T2 images were obtained. CLINICAL INFORMATION: STROKE LIKE SYMPTOMS COMPARISON: None. FINDINGS: 9 mm focus of restricted diffusion in the LEFT lorenzo radiata extending into the LEFT internal capsul e consistent with acute ischemia. Mild associated edema. No other foci of restricted diffusion. Moderate to advanced small vessel changes. Moderate parenchymal volume loss. Normal posterior fossa. Tiny chronic lacunar infarct RIGHT cerebellum. Normal vascular flow voids at the skull base. No extra -axial fluid collections. Paranasal sinuses are well aerated. Normal posterior nasopharynx. Normal parapharyngeal fat. Normal optic chiasm and pituitary infundibul um. Moderate to advanced symmetric atrophy temporal lobes and hippocampal formations. Normal optic ch iasm. Normal cavernous sinuses and Meckel's cave. No hemosiderin on susceptibly weighted images. MR/MR head wo con* [id number] IMPRESSION: 1. 9 mm focus of restricted diffusion consistent with acute ischemia in the LE FT lorenzo radiata extending into the internal capsule. Mild associated edema. 2. Moderate to advanced small vessel changes with moderate parenchymal volume loss. Small vessel changes in the mary. 3. Moderate to advanced atrophy temporal lobes and hippocampal formations. 4. No hemosiderin on the susceptibility weighted images.
== END 2022-06-08 08:01 | disposition home or self-care (01) ==
LOC: RAD 08:03
PROVIDERS: Visit Provider Nurse Practitioner Family
DX: R29.90 Unspecified symptoms and signs involving the nervous system (principal); R29.898 Other symptoms and signs involving the musculoskeletal system; R26.89 Other abnormalities of gait and mobility; G45.9 Transient cerebral ischemic attack, unspecified; R60.0 Localized edema; G31.9 Degenerative disease of nervous system, unspecified
CPT/HCPCS: 70551

== ENCOUNTER → 2022-06-15 12:16 | Outpatient (BNVA) | payer MEDICARE, OTHER, SELFPAY | PROVIDERS: PCP Family Medicine; Visit Provider Nurse Practitioner | DX: I69.322 Dysarthria following cerebral infarction (principal); I69.351 Hemiplegia and hemiparesis following cerebral infarction affecting right dominant side; R63.6 Underweight; Z68.1 Body mass index [BMI] 19.9 or less, adult | CPT/HCPCS: 99204 ==

== ENCOUNTER → 2022-06-27 13:30 | Outpatient (BNVA) | payer MEDICARE, OTHER, SELFPAY | PROVIDERS: PCP Family Medicine; Visit Provider Internal Medicine | DX: R63.4 Abnormal weight loss (principal); I63.9 Cerebral infarction, unspecified; R42 Dizziness and giddiness | CPT/HCPCS: 80053; 80061; 84443; 85025 ==

== ENCOUNTER 2022-08-08 20:19 | Emergency (ER) | payer MEDICARE, OTHER, SELFPAY ==
[2022-08-08 20:28] VITALS: BP 134/76; PULSE 72; RESP 16; TEMP 36.6; O2SAT 97
--- NOTE | 2022-08-08 20:31 | ECG_ITS ---
[facility] Test Date: 2022-08-08 Pat Name: Molly Rolle Department: Room: Gender: Female Carpet Measurer: : 1940 Requested By: Cipriano Nova Order Number: [id number] Scooter MD: Delores Neville M.D. Measurements Intervals [place] Rate: 74 P: 55 HI: 138 QRS: 70 QRSD: 102 T: 72 QT: 407 QTc: 452 Interpretive Statements SINUS RHYTHM WITH OCCASIONAL VENTRICULAR PREMATURE COMPLEXES VOLTAGE CRITERIA FOR LVH [MEETS CRITERIA IN ONE OF: R(aVL), S(V1), R(V5), R(V5/V6)+S(V1)] No previous ECG available for comparison Electronically Signed On 08-09-2022 21:02:46 CARGO AND CONTAINER INSPECTOR by Delores Neville M.D. [id number]
--- NOTE | 2022-08-08 20:51 | XRR_ITS ---
PROCEDURE INFORMATION: Exam: XR Chest Exam date and time: 08/08/2022 8:58 PM Age: 82 years old Clinical indication: Angina; Additional info: Chest pain TECHNIQUE: Imaging protocol: Radiologic exam of the chest. Views: 1 view. COMPARISON: No relevant prior studies available. FINDINGS: Lungs: Calcified granulomas in the right lower lobe and left upper lobe. No focal consolidation. No pulmonary edema. Pleural spaces: No pleural effusion. No pneumothorax. Heart/Mediastinum: The cardiac silhouette is mildly enlarged. Mediastinal contours are unremarkable. Calcified right paratracheal lymph node. Vasculature: Vascular calcifications in the aorta. Bones/joints: Unremarkable for age. XR/XR chest 1V portable [id number] IMPRESSION: 1. No acute cardiopulmonary process. 2. Incidental/nonacute findings are listed in the report.
--- NOTE | 2022-08-08 20:51 | ECG_ITS ---
[facility] Test Date: 2022-08-08 Pat Name: Molly Rolle Department: Room: Gender: Female Respiratory Therapist Assistant: : 1940 Requested By: Rhea Rothman Order Number: [id number] Scooter MD: Delores Neville M.D. Measurements Intervals [place] Rate: 70 P: 142 CA: 148 QRS: 86 QRSD: 97 T: 95 QT: 439 QTc: 475 Interpretive Statements ECTOPIC ATRIAL RHYTHM MINIMAL VOLTAGE CRITERIA FOR LVH, CONSIDER NORMAL VARIANT [MEETS CRITERIA IN ONE OF: R(aVL), S(V1), R(V5), R(V5/V6)+S(V1)] LATERAL MYOCARDIAL INFARCTION , OF INDETERMINATE AGE [40+ ms Q WAVE AND/OR ST/T ABNORMALITY IN I/aVL/V5/V6] No previous ECG available for comparison Electronically Signed On 08-09-2022 21:03:53 ROUTE SALES PERSON by Delores Neville M.D. [id number]
--- NOTE | 2022-08-08 20:54 | ED_ITS ---
HPI - Chest Pain General: Chief Complaint: Chest Pain Stated Complaint: heart problems Time Seen by Provider: 08/08/22 20:40 History of Present Illness: 82-year-old female who comes in with chest pain which she has been having off and on since 1 PM today. She states she has had about 1 episode an hour of sharp stabbing pain in her left breast area which lasts about 1 minute. She rates the pain about a 3 out of 10 when it is present. She denies pain currently. She states she has associated palpitations with the pain. She denies associated shortness of breath, nausea or diaph oresis. No prior cardiac history. She did have a recent stroke. She just recently had a Holter monitor which she turned in but she does not have the results of that. No prior cardiac history. She does have a family history of cardiac disease. She has hypertension and hyperlipidemia Associated symptoms: Reports palpitations; Deny abdominal pain, dyspnea, fever(s), nausea, syncope or vomiting Review of Systems 2 Const: Denies: fever(s), chills or body aches Eyes: Denies: change in vision ENMT: Denies: throat pain Card: Reports: chest pain and palpitations; Denies: lightheadedness, syncope, dyspnea on exertion or orthopnea Resp: Denies: dyspnea, productive cough or non-productive cough GI: Denies: abdominal pain, nausea or vomiting : Denies: difficulty voiding or dysuria Musc: Denies: extremity swelling or joint swelling Skin/Breast: Denies: rash Neuro: Denies: numbness in extremities or weakness in extremities Endo: Denies: polyuria or polydipsia PFSH ED PFSH: Medical History (Updated 08/08/22 @ 22:39 by Rhea Rothman MD) Anxiety CVA (cerebral vascular accident) CVA (cerebral vascular accident) Diverticulitis Dyslipidemia Femoral hernia Hypertension Osteoporosis Surgical History History of femoral hernia repair Hx of colonoscopy Family History Denies family history of CAD (coronary artery disease) Social History Smoking and tobacco status: never smoked Alcohol intake: never Household members: spouse Housing: House Physical Exam Const: COMMON NORMALS: no acute distress, patient oriented x3 and alert HENMT: COMMON NORMALS: normocephalic, atraumatic, external ears normal and moist oral mucous membranes HEAD & SCALP: normocephalic and atraumatic EXTERNAL EAR: Yes external ears normal Eye: COMMON NORMALS: conjunctivae normal CONJUNCTIVA: Yes conjunctivae normal Neck/C-Spine: COMMON NORMALS: full ROM, supple and no JVD Chest: CHEST: Yes Symmetrical chest wall rise and No tenderness Resp: COMMON NORMALS: normal respiratory effort, No use of accessory muscles and clear to auscultation bilaterally AUSCULTATION: clear to auscultation bilaterally Cardio: COMMON NORMALS: no JVD, regular rate and regular rhythm RATE: regular rate RHYTHM: regular rhythm GI: COMMON NORMALS: Normal to inspection, nondistended, normoactive bowel sounds present, Soft to palpation and non-tender PALPATION: Yes Soft to palpation : COMMON NORMALS: Yes no CVA tenderness BLADDER/KIDNEY EXAM: Yes no CVA tenderness Back/Pelvis: COMMON NORMALS: no CVA tenderness Extremity: COMMON NORMALS: no calf tenderness and no pedal edema Neuro: COMMON NORMALS: patient oriented x3, moves all extremities and no focal motor deficits SENSORIUM/ORIENTATION: Yes alert Skin: COMMON NORMALS: no rashes or lesions noted GENERAL SKIN EXAM: no rashes or lesions noted Course Reevaluation(s): Reevaluation #1: Patient's D-dimer is 0.51 which is age corrected normal. Her initial troponin is negative. She does have elevation of her lipase to 105. She has not had a previous cholecystectomy. We will proceed with a CT of her abdomen. Did not feel to her troponin is needed as the patient has had pain off and on all day Reevaluation #2: CT abdomen and pelvis shows some mild fluid-filled loops of small bowel, possibly consistent with enteritis but no other acute findings. Suspect that the patient's pain may be from a mild case of pancreatitis. I do not feel that she needs to be admitted as she is having no abdominal pain or abdominal tenderness at this time. We will discharge the patient on a low-fat diet. We will have her follow-up with her primary care doctor for further work-up. Vital Signs: Vital signs: Vital Signs Temperature 98 F 08/08/22 20:28 Pulse Rate 72 08/08/22 20:28 Respiratory Rate 16 08/08/22 20:28 Blood Pressure 134/76 08/08/22 20:28 Pulse Oximetry 97 08/08/22 20:28 Oxygen Delivery Me thod 08/08/22 20:28 MDM - Chest Pain Medical Decision Making 82-year-old female with history of hypertension, hyperlipidemia, recent TIA who presents with intermittent sharp stabbing chest pain. No prior cardiac history. EKG shows no acute ischemic changes. We will do serial troponins. Patient is already on an aspirin a day which she has taken. We will also do a D-dimer to screen for pulmonary embolism. If that is positive, she may need a CTA of her chest. Differential includes chest wall pain, esophageal reflux, cardiac ischemia, PE, pneumonia, arrhythmia Lab Data 08/08/22 21:56 08/08/22 21:56 Radiology Impressions Chest X-Ray 08/08/22 20:51 IMPRESSION: 1. No acute cardiopulmonary process. 2. Incidental/nonacute findings are listed in the report. Abdomen/Pelvis CT 08/08/22 22:37 IMPRESSION: 1. Fluid within the small bowel without evidence of bowel wall thickening. This may reflect viral gastroenteritis in the appropriate clinical situation. 2. Increased fecal content in the colon. 3. Mild body wall edema. 4. Incidental/nonacute findings are listed in the report. Laboratory Results WBC 5.7 10^3/uL (4.0-10.0) 08/08/22 21:56 RBC 3.96 10^6/uL (4.1-5.3) L 08/08/22 21:56 Hgb 12.1 g/dL (11.5-15.3) 08/08/22 21:56 Hct 37.6 % (37.0-47.0) 08/08/22 21:56 MCV 94.9 fl (81-99) 08/08/22 21:56 MCH 30.6 pg (28.0-34.0) 08/08/22 21:56 MCHC 32.2 g/dL (30.0-36.0) 08/08/22 21:56 RDW 12.9 % (12.1-15.1) 08/08/22 21:56 Plt Count 198 10^3/cmm (130-400) 08/08/22 21:56 MPV 10.0 fL (7.4-10.4) 08/08/22 21:56 Neut % (Auto) 58.2 % 08/08/22 21:56 Lymph % (Auto) 25.5 % 08/08/22 21:56 [place] % (Auto) 12.0 % 08/08/22 21:56 Eos % (Auto) 3.2 % 08/08/22 21:56 Baso % (Auto) 0.7 % 08/08/22 21:56 Neut # (Auto) 3.31 10^3/uL (1.8-7.7) 08/08/22 21:56 Lymph # (Auto) 1.5 10^3/uL (0.8-4.8) 08/08/22 21:56 [place] # (Auto) 0.7 10^3/uL (0.2-0.9) 08/08/22 21:56 Eos # (Auto) 0.2 10^3/uL (0.0-0.8) 08/08/22 21:56 Baso # (Auto) 0.0 10^3/uL (0.0-0.1) 08/08/22 21:56 Nucleated RBC % (auto) 0 % 08/08/22 21:56 Nucleated RBCs # 0.0 /100WBC 08/08/22 21:56 D-Dimer 0.51 ug/mIFEU (0-0.59) 08/08/22 21:56 Sodium 138 mmol/L (136-145) 08/08/22 21:56 Potassium 3.9 mmol/L (3.5-5.1) 08/08/22 21:56 Chloride 104 mmol/L (98-107) 08/08/22 21:56 Carbon Dioxide 25 mmol/L (22-29) 08/08/22 21:56 Anion Gap 12.9 (5-19) 08/08/22 21:56 BUN 17 mg/dL (8-23) 08/08/22 21:56 Creatinine 0.7 mg/dL (0.5-0.9) 08/08/22 21:56 GFR Calculation Not Reportable 08/08/22 21:56 Glucose 86 mg/dL (65-115) 08/08/22 21:56 Calculated Osmolality 287 mOsm/kg (285-295) 08/08/22 21:56 Calcium 8.8 mg/dL (8.5-10.5) 08/08/22 21:56 Total Bilirubin 0.2 mg/dL (0.15-1.2) 08/08/22 21:56 AST 31 U/L (0-32) 08/08/22 21:56 ALT 36 U/L (0-33) H 08/08/22 21:56 Alkaline Phosphatase 78 U/L (35-105) 08/08/22 21:56 Troponin T Baseline 10 ng/L (0-10) 08/08/22 21:56 Total Protein 5.8 g/dL (6.6-8.7) L 08/08/22 21:56 Albumin 3.6 g/dL (3.5-5.2) 08/08/22 21:56 Globulin 2.2 g/dL (1.3-4.6) 08/08/22 21:56 Lipase 105 U/L (13-60) H 08/08/22 21:56 EKG Data EKG 1: I personally reviewed and interpreted this EKG as follows: EKG interpretation date: 08/08/22 EKG interpretation time: 20:59 Interpretation: Normal sinus rhythm, no acute ST segment elevation or depression or T wave changes. Discharge Plan Discharge Patient Disposition: Home Clinical Impression: Chest pain, Pancreatitis Condition: Stable Prescriptions: No Action rivastigmine tartrate 1.5 mg capsule 1.5 mg PO BID aspirin 325 mg tablet 325 mg PO DAILY tramadol 50 mg tablet 50 mg PO Q6H PRN losartan 50 mg tablet 50 mg PO DAILY@20 paroxetine HCl 40 mg tablet 40 mg PO DAILY@20 lactulose 10 gram/15 mL solution 15 ml PO BID Qty: 237 2RF Discharge Orders: Discharge ED (Routine); Ordered 08/08/22 Ordered By: Rhea Rothman Referrals: Paulina Brewster DO [Primary Care Provider] - Discharge Diet: Advance as tolerated and Low Fat Discharge Activity: Resume usual activity Patient Instructions: Heart Palpitations, Chest Pain (DC), Opioid Safety, Pain Management, Pancreatitis Activity Restrictions/Additional Instructions: you need to be on a low fat diet. Continue your aspirin daily. Retun if your pain worsens and persists or if you develop vomiting or a fever. Follow up in 2-3 days with your primary care doctor Coding Level of Care Code ED Inspector Cold Working for Chg Fwd History Comprehensive Exam Comprehensive Medical Decision Making High Complexity
[2022-08-08 21:36] VITALS: BP 133/64; PULSE 62; RESP 18; O2SAT 96
[2022-08-08 22:04] LABS: Basophils % 0.7 %; Eosinophils # 0.2 10^3/uL (0.0-0.8); Eosinophils % 3.2 %; Hematocrit 37.6 % (37.0-47.0); Hemoglobin 12.1 g/dL (11.5-15.3); Lymphocytes # 1.5 10^3/uL (0.8-4.8); Lymphocytes % 25.5 %; Mean Corpuscular HGB Conc 32.2 g/dL (30.0-36.0); Mean Corpuscular Hemoglobin 30.6 pg (28.0-34.0); Mean Corpuscular Volume 94.9 fl (81-99); Monocytes # 0.7 10^3/uL (0.2-0.9); Neutrophils # 3.31 10^3/uL (1.8-7.7); Neutrophils % 58.2 %; Nucleated Red Blood Cells % 0 %; Platelet Count 198 10^3/cmm (130-400); Red Blood Count 3.96 10^6/uL (4.1-5.3); Red Cell Distribution Width 12.9 % (12.1-15.1); White Blood Count 5.7 10^3/uL (4.0-10.0)
[2022-08-08 22:23] LABS: D Dimer 0.51 ug/mIFEU (0-0.59)
[2022-08-08 22:26] LABS: Troponin(5th) Baseline 10 ng/L (0-10)
[2022-08-08 22:28] LABS: Alanine Aminotransferase 36 U/L (0-33); Albumin Level 3.6 g/dL (3.5-5.2); Alkaline Phosphatase 78 U/L (35-105); Aspartate Amino Transferase 31 U/L (0-32); Blood Urea Nitrogen 17 mg/dL (8-23); Calcium 8.8 mg/dL (8.5-10.5); Carbon Dioxide 25 mmol/L (22-29); Chloride 104 mmol/L (98-107); Globulin 2.2 g/dL (1.3-4.6); Glucose 86 mg/dL (65-115); Lipase 105 U/L (13-60); Osmolality Calculated 287 mOsm/kg (285-295); Sodium 138 mmol/L (136-145); Total Bilirubin 0.2 mg/dL (0.15-1.2); Total Protein 5.8 g/dL (6.6-8.7)
[2022-08-08 22:31] LABS: Anion Gap 12.9 (5-19); Potassium 3.9 mmol/L (3.5-5.1)
[2022-08-08 22:36] VITALS: BP 141/76; PULSE 66; RESP 18; O2SAT 97
--- NOTE | 2022-08-08 22:37 | CTR_ITS ---
PROCEDURE INFORMATION: Exam: CT Abdomen And Pelvis With Contrast Exam date and time: 08/08/2022 10:43 PM Age: 82 years old Clinical indication: Prior surgery; Surgery type: Hernia repair; Patient HX: Elevated lipase. Patient presented to er for chest pain. ; Additional info: Pancreatitis TECHNIQUE: Imaging protocol: Computed tomography of the abdomen and pelvis with contrast. Sagittal and coronal reformatted images were created and reviewed. Radiation optimization: All CT scans at this facility use at least one of these dose optimization techniques: automated exposure control; mA and/or kV adjustment per patient size (includes targeted exams where dose is matched to clinical indication); or iterative reconstruction. Contrast material: OMNI 350; Contrast volume: 92 ml; Contrast route: INTRAVENOUS (IV); COMPARISON: CT abdomen pelvis w con* [id number] 07/20/2020 9:21 PM RADIATION DOSE METRICS: Total DLP (mGy-cm): 266.93 FINDINGS: Lungs: Calcified granulomas in the right lower lobe. There is linear scarring in the right and left lower lobes. Visualized lungs are clear. Pleural spaces: No pleural effusion. Heart: Stable mild enlargement of the visualized portions of the heart. Calcification of the mitral valve annulus. Coronary arteries: Mild atherosclerotic calcification in the visualized coronary arteries. Liver: Multiple calcified granulomas in the liver are stable. Multiple simple cysts in the liver are stable. The largest measures 2.7 cm (series 3, image 14). Gallbladder and bile ducts: The gallbladder is unremarkable. No biliary ductal dilatation. Pancreas: The pancreas is unremarkable. No pancreatic ductal dilatation. Spleen: Multiple calcified granulomas in the spleen are stable. Adrenal glands: The right and left adrenal glands are unremarkable. Kidneys and ureters: The right and left kidneys are unremarkable. The distal right and left ureters are obscured by adjacent bowel loops and soft tissue structures. The visualized portions of the ureters are unremarkable. Stomach and bowel: Increased fecal content in the colon. Fluid within the small bowel without evidence of bowel wall thickening. Ingested contents in the stomach. Appendix: Appendix not definitely visualized. No inflammatory changes in the pericecal region however. Intraperitoneal space: No free intraperitoneal air. No ascites. No loculated fluid collections to suggest an abscess. Vasculature: Stable moderate atherosclerotic calcifications in the visualized arteries. Hepatic veins, portal veins, splenic vein, and SMV are patent. Lymph nodes: No lymphadenopathy. Urinary bladder: The bladder is incompletely filled, which can limit evaluation. No focal abnormality in the bladder however. Reproductive: The uterus is unremarkable. The right and left ovaries are unremarkable. Bones/joints: Bones are diffusely osteopenic. Degenerative changes in the spine and hips. Mild spinal canal stenosis at L3-L4, L4-L5, and L5-S1. Multilevel foraminal stenosis of varying severity in the lumbar spine. Soft tissues: Mild body wall edema. CT/CT abdomen pelvis w con* [id number] IMPRESSION: 1. Fluid within the small bowel without evidence of bowel wall thickening. This may reflect viral gastroenteritis in the appropriate clinical situation. 2. Increased fecal content in the colon. 3. Mild body wall edema. 4. Incidental/nonacute findings are listed in the report.
[2022-08-08] MEDS: iohexol 350 mg/mL 500 mL Btl (per mL) IV (22:57)
[2022-08-09] VITALS: BP 152/71; PULSE 67; RESP 18; O2SAT 98
== END 2022-08-09 00:01 | disposition home or self-care (01) ==
PROVIDERS: Emergency Provider Emergency Medicine; PCP Family Medicine
DX: R07.9 Chest pain, unspecified (principal); K85.90 Acute pancreatitis without necrosis or infection, unspecified; Z79.82 Long term (current) use of aspirin; Z86.73 Personal history of transient ischemic attack (TIA), and cerebral infarction without residual deficits; E78.5 Hyperlipidemia, unspecified; I10 Essential (primary) hypertension
CPT/HCPCS: 71045; 74177; 80053; 83690; 84484; 85025; 85378; 93005; 99285; Q9967

== ENCOUNTER 2022-08-10 13:26 | Outpatient (CLI) | payer MEDICARE, OTHER, SELFPAY ==
--- NOTE | 2022-08-10 13:30 | CT_ITS ---
WS: [id number] CT ANGIOGRAM CEREBRAL AND CAROTID ARTERIES HISTORY: I63.9 - Cerebral infarction, unspecified TECHNIQUE: CT angiogram is performed of the carotid and cerebral arteries. During arterial injection imaging is obtained from the skull vertex to the aortic arch in 1.25 mm imaging. Coronal and sagittal reformats are submitted. Additional multi planar reformats of the carotid and cerebral arteries are submitted, MIP imaging also reviewed. NASCET criteria utilized. [facility] CT [facility] at [facility] at least one of these dose optimization techniques: automated exposure control; mA and/or kV adjust ment per patient size (includes targeted exams where dose is matched to clinical indication); or iter ative reconstruction. CONTRAST: Omnipaque 350; 95 mL IV. DLP: 910.34 mGy.cm COMPARISON: Prior MRI head 06/08/2022. Noncontrast head CT. Mild atrophy and moderate small vessel ischemic disease. Lacunar infarct in the LEFT lorenzo radiata. Corresponds to the previously described acute infarct from 06/08/2022. No hemorr sierra. There are a few additional smaller lacunar infarcts also in the basal ganglia. Carotid Angiogram: Right carotid: Common carotid artery: Arises normally from the innominate artery. No significant plaque or stenosis. Internal carotid artery: Minimal calcified plaque, no stenosis. External carotid artery: Patent. Left carotid: Common carotid artery: Arises normally from the aorta. No significant plaque or stenosis. Internal carotid artery: No plaque or stenosis. External carotid artery: Patent. Right vertebral artery: Small caliber RIGHT vertebral artery but it is patent. Left vertebral artery: Dominant LEFT vertebral artery is patent. Subclavian arteries: No stenosis or significant abnormality. Upper thorax: Biapical pleural thickening and scarring. Thyroid gland: Partially calcified subcentimeter nodule RIGHT thyroid. Osseous structures: Degenerative spondylitic changes. CEREBRAL ANGIOGRAM: Intracranial vertebral arteries: Very small caliber RIGHT vertebral artery. Dominant LEFT vertebral a rtery. Basilar artery: Mild bulbous appearance of the distal basilar artery but no aneurysm. Intracranial Internal carotid arteries: Demonstrates no significant stenosis or plaque. Middle cerebral arteries: Normal. Anterior cerebral arteries and ACOM: Very small hypoplastic RIGHT A1 segment. Posterior cerebral arteries and PCOM's: Patent but small caliber. RIGHT is slightly more dominant dee n the LEFT. Dural venous sinuses are normally enhancing. Mastoid air cells: Normal. Paranasal sinuses: Normal. Calvarium: Normal. CT/CT angio headneck* [id number] IMPRESSION: 1. No significant cervical carotid artery stenosis. 2. Intracranial cerebral arteries are normal. No aneurysm or significant ather osclerotic disease or occlusion. 3. Dominant LEFT vertebral artery. 4. Cerebral atrophy and moderate small vessel ischemic disease. Bilateral lacu laura infarcts.
[2022-08-10] MEDS: iohexol 350 mg/mL 500 mL Btl (per mL) IV (13:44)
== END 2022-08-10 13:27 | disposition home or self-care (01) ==
PROVIDERS: PCP Family Medicine; Visit Provider Nurse Practitioner
DX: G31.9 Degenerative disease of nervous system, unspecified (principal); I67.82 Cerebral ischemia; I63.81 Other cerebral infarction due to occlusion or stenosis of small artery
CPT/HCPCS: 70496; 70498; Q9967

== ENCOUNTER 2022-08-24 14:01 | Outpatient (CLI) | payer MEDICARE, OTHER, SELFPAY ==
--- NOTE | 2022-08-24 | USCV_ITS ---
Molly Rolle Age: 82 Gender: F : 1940 Exam Date: 08/24/2022 14:26 Ordering Phys: Kal Rahman MSN AGACNP-BC Technologist: Akbar Aldridge [place] [facility] [place]ication: murmur cva BP: 118 / 65 HR: 74 Rhythm: Sinus Technical Quality: Adequate MEASUREMENTS (Male / Female) Normal Values 2D ECHO LV Diastolic Diameter PLAX 3.9 cm 4.2 - 5.9 / 3.9 - 5.3 cm LV Systolic Diameter PLAX 2.6 cm IVS Diastolic Thickness 0.9 cm 0.6 - 1.0 / 0.6 - 0.9 cm IVS Systolic Thickness 1.2 cm LVPW Diastolic Thickness 1.1 cm 0.6 - 1.0 / 0.6 - 0.9 cm LVPW Systolic Thickness 1.3 cm LVOT Diameter 2.0 cm LV Ejection Fraction 2D Teich 61.4 % LV Ejection Fraction MOD 2C 60.7 % LV Ejection Fraction 2C AL 63.7 % LA Diameter 3.5 cm Aorta at Sinotubular Diameter 2.5 cm M-MODE Aortic Annulus Diameter 2.9 cm LA Ao Ratio MM 1.2 MV E Point Septal Separation 0.9 cm DOPPLER LVOT Peak Velocity 75.0 cm/s MV Area PHT 5.0 cm squared Mitral E to A Ratio 0.9 MV E' Velocity 47.0 cm/s Mitral E to MV E' Ratio 14.3 Mitral E to LV E' Lateral Ratio 13.0 Mitral E to LV E' Septal Ratio 16.2 TR Peak Velocity 205.3 cm/s TR Peak Gradient 16.9 mmHg TV Peak E Velocity 59.0 cm/s Right Atrial Pressure 3.0 mmHg Pulmonary Artery Systolic Pressu 19.9 mmHg RV Acceleration Time 0.1 s FINDINGS Left Ventricle Normal left ventricular size, systolic function and wall thickness, with no regional wall motion abnormalities. Grade I/IV diastolic dysfunction (abnormal relaxation filling pattern), normal to mildly elevated filling pressures. Left ventricular ejection fraction is estimated at 60%. Right Ventricle Normal right ventricular size and systolic function. Normal right ventricular systolic pressure. Right Atrium The right atrium is normal in size. Left Atrium The left atrium is normal in size. Mitral Valve Structurally normal mitral valve. Moderate mitral valve regurgitation. Aortic Valve Structurally normal trileaflet aortic valve. No aortic valve stenosis. Mild aortic valve regurgitation. Tricuspid Valve Structurally normal tricuspid valve. Trace tricuspid valve regurgitation. Pulmonic Valve Pulmonic valve not well visualized. Pericardium Normal pericardium without effusion. Aorta Normal ascending aorta dimension. IVC The inferior vena cava appears normal. CONCLUSIONS Normal left ventricular size, systolic function and wall thickness, with no regional wall motion abnormalities. Grade I/IV diastolic dysfunction (abnormal relaxation filling pattern), normal to mildly elevated filling pressures. Left ventricular ejection fraction is estimated at 60%. Structurally normal mitral valve. Moderate mitral valve regurgitation. Structurally normal trileaflet aortic valve. No aortic valve stenosis. Mild aortic valve regurgitation. There are no prior echocardiogram studies to compare. Dr. Ren Nayak MD (Electronically Signed) Final Date: 25 August 2022 08:37 S
== END 2022-08-24 14:02 | disposition home or self-care (01) ==
LOC: RAD 14:03
PROVIDERS: PCP Family Medicine; Visit Provider Nurse Practitioner
DX: I63.9 Cerebral infarction, unspecified (principal); R01.1 Cardiac murmur, unspecified; I08.0 Rheumatic disorders of both mitral and aortic valves
CPT/HCPCS: 93306

== ENCOUNTER → 2024-06-05 09:22 | Outpatient (BNVA) | payer MEDICARE, OTHER, SELFPAY | PROVIDERS: PCP Family Medicine; Visit Provider Nurse Practitioner Family | DX: L57.0 Actinic keratosis (principal); L82.0 Inflamed seborrheic keratosis; L81.4 Other melanin hyperpigmentation; L82.1 Other seborrheic keratosis; Z12.83 Encounter for screening for malignant neoplasm of skin | CPT/HCPCS: 17000; 17110; 99203 ==

== ENCOUNTER → 2024-10-25 16:37 | Outpatient (BNVA) | payer MEDICARE, OTHER, SELFPAY | PROVIDERS: PCP Family Medicine; Visit Provider Registered Nurse Neonatal Intensive Care | DX: R05.9 Cough, unspecified (principal) | CPT/HCPCS: 87400 ==

== ENCOUNTER → 2024-10-29 13:18 | Outpatient (BNVA) | payer MEDICARE, OTHER, SELFPAY | PROVIDERS: PCP Family Medicine; Visit Provider Nurse Practitioner Family | DX: L81.4 Other melanin hyperpigmentation (principal); L82.1 Other seborrheic keratosis; D48.5 Neoplasm of uncertain behavior of skin | CPT/HCPCS: 11102; 99213 ==

== ENCOUNTER 2024-11-11 13:31 | Inpatient (IN) | payer MEDICARE, SELFPAY ==
[2024-11-11] VITALS (9 sets, daily range): BP systolic 134–173; BP diastolic 67–77; PULSE 89–99; RESP 15–16; TEMP 37.1–37.9; O2SAT 93–95; BMI 18.7
--- NOTE | 2024-11-11 13:43 | XRR_ITS ---
PROCEDURE INFORMATION: Exam: XR Right Hip Exam date and time: 11/11/2024 1:51 PM Age: 84 years old Clinical indication: Injury or trauma; Fall; Blunt trauma (contusions or hematomas); Right; Hip TECHNIQUE: Imaging protocol: Radiologic exam of the right hip. Views: 1 view hip with pelvis when performed. COMPARISON: CT abdomen pelvis w con* [id number] 08/08/2022 10:43 PM FINDINGS: Bones/joints: There is an acute, mildly impacted subcapital right femoral fracture. There are mild degenerative changes of the bilateral hips. Soft tissues: Unremarkable. XR/XR hip RT 2-3V wo/w pel* [id number] IMPRESSION: Acute, mildly impacted subcapital right femoral fracture
--- NOTE | 2024-11-11 13:48 | W.ED.FALL ---
HPI - Fall General: Chief Complaint: Fall Stated Complaint: Fall Time Seen by Provider: 11/11/24 13:44 History of Present Illness: Patient brought in by EMS with complaints of a fall. Patient does have a c-collar in place but denies any neck pain or loss consciousness. Patient says she fell on her right side and has right hip pain. She also has skin tears and lacerations on her right upper arm. Patient says this was mechanical fall. She did not pass out or lose consciousness. This was in her house. Last oral intake was some toast this morning for breakfast. Patient is not on any blood thinners other than 325 mg aspirin Related Data Home Medications ?Medication ?Instructions ?Recorded ?Confirmed losartan 50 mg tablet 50 mg PO QAM 07/21/20 11/11/24 aspirin 325 mg tablet 325 mg PO QAM 06/09/21 11/11/24 alprazolam 0.5 mg tablet 0.25 mg PO QAM 10/25/24 11/11/24 amlodipine 5 mg tablet 2.5 mg PO BEDTIME 10/25/24 11/11/24 atorvastatin 40 mg tablet 40 mg PO BEDTIME 10/25/24 11/11/24 calcium 600 mg (as 1 cap PO BID 10/25/24 11/11/24 carbonate)-vitamin D3 12.5 mcg (500 unit) capsule (Calcium with Vit D3) cetirizine 10 mg tablet (Zyrtec) 10 mg PO DAILY PRN allergies 10/25/24 11/11/24 memantine 10 mg tablet 10 mg PO BID 10/25/24 11/11/24 mirtazapine 15 mg tablet 15 mg PO BEDTIME 10/25/24 11/11/24 oxybutynin chloride 5 mg tablet 5 mg PO BEDTIME 10/25/24 11/11/24 potassium citrate 99 mg capsule 99 mg PO BEDTIME 10/25/24 11/11/24 sertraline 100 mg tablet 100 mg PO BEDTIME 10/25/24 11/11/24 multivitamin 1 tab PO QAM 11/11/24 11/11/24 polyethylene glycol 3350 17 7.5 g PO BEDTIME 11/11/24 11/11/24 gram/dose oral powder (Miralax) turmeric root extract 500 mg tablet 500 mg PO BID 11/11/24 11/11/24 vit C 250 mg-vit E 90 mg-zinc 40 1 tab PO BID 11/11/24 11/11/24 mg-copper 1 [id number] capsule (PreserVision AREDS-2) Previous Rx's ?Medication ?Instructions ?Recorded albuterol sulfate 2.5 mg/3 mL 2.5 mg (3 mL) inhalation Q4H PRN 10/25/24 (0.083 %) solution for nebulization shortness of breath or wheezing #90 mL prednisone 20 mg tablet 20 mg PO DAILY 5 days #5 tabs 10/25/24 Allergies Allergy/AdvReac Type Severity Reaction Status Date / Time bromide salts Allergy Unknown Verified 10/25/24 16:20 Review of Systems General: Reports: 10 or more systems reviewed and unremarkable except in HPI and below PFSH ED PFSH: Medical History (Updated 11/12/24 @ 08:16 by Oniel Garcia MD) CVA (cerebral vascular accident) Osteoporosis Anxiety Femoral hernia Hypertension Dyslipidemia Diverticulitis Surgical History History of femoral hernia repair Hx of colonoscopy Family History Denies family history of CAD (coronary artery disease) Social History Smoking and tobacco/nicotine status: never used tobacco/nicotine Alcohol intake: never Substance/Drug Use: never Household members: spouse Housing: House Physical Exam Const: COMMON NORMALS: no acute distress, average body habitus, patient oriented x3, no limitations, healthy appearing, alert and well nourished HENMT: COMMON NORMALS: normocephalic, atraumatic, hearing grossly normal bilaterally, external ears normal, Normal external nose present, moist oral mucous membranes and oropharynx normal HEAD & SCALP: normocephalic and atraumatic NOSE: Normal external nose present EXTERNAL EAR: Yes external ears normal Eye: COMMON NORMALS: Equal, round and reactive pupils present, EOMs intact bilaterally, conjunctivae normal and no scleral icterus CONJUNCTIVA: Yes conjunctivae normal PUPIL: Yes Equal, round and reactive pupils present Neck/C-Spine: COMMON NORMALS: full ROM, no lymphadenopathy, supple, no meningeal signs, no JVD and Thyroid normal THYROID: Thyroid normal Chest: COMMONS NORMALS: normal inspection of the chest and normal palpation of entire chest wall Resp: COMMON NORMALS: normal respiratory effort, No retractions, No use of accessory muscles and clear to auscultation bilaterally AUSCULTATION: clear to auscultation bilaterally Cardio: COMMON NORMALS: no JVD, regular rate, regular rhythm, S1 normal heart sound present, S2 normal heart sound present, No gallops present (Cardio), No clicks present (Cardio), No murmurs present (Cardio) and No rub (Cardio) RATE: regular rate RHYTHM: regular rhythm HEART SOUNDS: S1 normal heart sound present and S2 normal heart sound present GI: COMMON NORMALS: Normal to inspection, nondistended, normoactive bowel sounds present, Soft to palpation, non-tender, No hepatosplenomegaly present and no masses PALPATION: Yes Soft to palpation and Yes No hepatosplenomegaly present Extremity: NARRATIVE EXTREMITY EXAM: Right upper extremity bandage, clean dry and intact, or right hip greater trochanter region tender to palpate no obvious step-off deformity or crepitus noted. Neuro: COMMON NORMALS: patient oriented x3 SENSORIUM/ORIENTATION: Yes alert MENINGEAL SIGNS: Yes no meningeal signs Course Vital Signs: Vital signs: Vital Signs Temperature 97.9 F 11/12/24 08:00 Pulse Rate 89 11/12/24 08:00 Respiratory Rate 16 11/12/24 08:00 Blood Pressure 144/70 11/12/24 08:00 Pulse Oximetry 94 11/12/24 08:00 Oxygen Delivery Me thod Nasal Cannula 11/12/24 08:00 Oxygen Flow Rate 1 11/12/24 05:21 MDM - Fall Medical Decision Making Preliminary report on right hip by myself shows a impacted right femoral neck fracture, we will get baseline lab work, chest x-ray EKG for presurgical clearance, discussed case with Dr. Story. He would prefer to be consulted for medical management of this patient and admission to [facility]. Dr. Garcia said he will not admit this patient due to comorbid medical conditions and patient's age but he will take care of this patient from a surgical standpoint. Medical Records I reviewed the patient's medical records. Lab Data I reviewed the patient's lab results. 11/12/24 04:35 11/12/24 04:35 Radiology Impressions Hip/Pelvis X-Ray 11/11/24 13:43 IMPRESSION: Acute, mildly impacted subcapital right femoral fracture Chest X-Ray 11/11/24 14:12 IMPRESSION: Stable chest without acute abnormality. Laboratory Results WBC 14.33 10^3/uL (3.29-11.43) H 11/11/24 14:49 RBC 4.39 10^6/uL (3.85-5.65) 11/11/24 14:49 Hgb 13.00 g/dL (11.27-16.99) 11/11/24 14:49 Hct 40.9 % (36-47) 11/11/24 14:49 MCV 93.2 fl (85-98) 11/11/24 14:49 MCH 29.6 pg (27-33) 11/11/24 14:49 MCHC 31.8 g/dL (30-55) 11/11/24 14:49 RDW 14.3 % (12.1-15.1) 11/11/24 14:49 Plt Count 163 10^3/cmm (157-399) 11/11/24 14:49 MPV 10.3 fL (7.4-10.4) 11/11/24 14:49 Neut % (Auto) 85.9 % 11/11/24 14:49 Lymph % (Auto) 6.4 % 11/11/24 14:49 [place] % (Auto) 6.1 % 11/11/24 14:49 Eos % (Auto) 0.7 % 11/11/24 14:49 Baso % (Auto) 0.3 % 11/11/24 14:49 Neut # (Auto) 12.31 10^3/uL (1.8-7.7) H 11/11/24 14:49 Lymph # (Auto) 0.9 10^3/uL (0.8-4.8) 11/11/24 14:49 [place] # (Auto) 0.9 10^3/uL (0.2-0.9) 11/11/24 14:49 Eos # (Auto) 0.1 10^3/uL (0.0-0.8) 11/11/24 14:49 Baso # (Auto) 0.0 10^3/uL (0.0-0.1) 11/11/24 14:49 Nucleated RBC % (auto) 0 % 11/11/24 14:49 Nucleated RBCs # 0.0 /100WBC 11/11/24 14:49 PT 12.90 SECONDS (12.1-14.9) 11/11/24 14:49 INR 0.91 (0.8-1.2) 11/11/24 14:49 Sodium 142 mmol/L (136-145) 11/11/24 14:49 Potassium 3.5 mmol/L (3.5-5.1) 11/11/24 14:49 Chloride 105 mmol/L (98-107) 11/11/24 14:49 Carbon Dioxide 27 mmol/L (22-29) 11/11/24 14:49 Anion Gap 13.5 (5-19) 11/11/24 14:49 BUN 17 mg/dL (8-23) 11/11/24 14:49 Creatinine 0.8 mg/dL (0.5-0.9) 11/11/24 14:49 GFR Calculation Not Reportable 11/11/24 14:49 Glucose 98 mg/dL (65-115) 11/11/24 14:49 Calculated Osmolality 296 mOsm/kg (285-295) H 11/11/24 14:49 Lactic Acid 0.8 mmol/L (0.5-2.2) 11/11/24 14:49 Calcium 9.5 mg/dL (8.5-10.5) 11/11/24 14:49 Total Bilirubin 0.4 mg/dL (0.15-1.2) 11/11/24 14:49 AST 24 U/L (0-32) 11/11/24 14:49 ALT 25 U/L (0-33) 11/11/24 14:49 Alkaline Phosphatase 85 U/L (35-105) 11/11/24 14:49 Troponin T Baseline 12 ng/L (0-10) H 11/11/24 14:49 Troponin T 120 Minute 10.31 ng/L (0-10) H 11/11/24 16:34 Delta Troponin T -1.69 ABS# (0-10) L 11/11/24 16:34 Total Protein 6.0 g/dL (6.6-8.7) L 11/11/24 14:49 Albumin 3.9 g/dL (3.5-5.2) 11/11/24 14:49 Globulin 2.1 g/dL (1.3-4.6) 11/11/24 14:49 Procalcitonin 0.10 ng/mL (0-0.5) 11/11/24 16:34 Urine Color Yellow (Yellow) 11/11/24 17:00 Urine Appearance Clear (CLEAR) 11/11/24 17:00 Urine pH 6 (5-7) 11/11/24 17:00 Ur Specific [place] 1.020 (1.005-1.030) 11/11/24 17:00 Urine Protein Neg (Negative) 11/11/24 17:00 Urine Glucose (UA) Norm (Normal) 11/11/24 17:00 Urine Ketones Negative (Negative) 11/11/24 17:00 Urine Blood Neg (Negative) 11/11/24 17:00 Urine Nitrate Negative (Negative) 11/11/24 17:00 Urine Bilirubin Neg (Negative) 11/11/24 17:00 Urine Urobilinogen Norm mg/dL (Negative) 11/11/24 17:00 Ur Leukocyte Esterase Negative (Negative) 11/11/24 17:00 Amorphous Sediment Not Reportable 11/11/24 17:00 All radiology interpretation(s) finalized by discharge Discharge Plan Discharge Patient Disposition: Admitted As Inpatient Admit Provider: Lonnie Avendano Clinical Impression: Closed fracture of right hip Qualifiers: Encounter type: initial encounter Qualified Code(s): S72.001A - Fracture of unspecified part of neck of right femur, initial encounter for closed fracture Fall Qualifiers: Encounter type: initial encounter Qualified Code(s): W19.XXXA - Unspecified fall, initial encounter Condition: Stable Coding Level of Care Code ED Cathode Washer for Mirian Callejas
--- NOTE | 2024-11-11 14:06 | ECG_ITS ---
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 Measurements Intervals Lane Rate: 94 P: 78 [place]: 129 QRS: 80 QRSD: 106 T: 88 QT: 384 QTc: 481 Interpretive Statements SINUS RHYTHM NONSPECIFIC ST & T-WAVE ABNORMALITY Compared to ECG 08/08/2022 23:06:45 T-wave abnormality now present Ectopic atrial rhythm no longer present Myocardial infarct finding no longer present Electronically Signed On 11-14-2024 18:20:20 CDT by Robby Marsh M.D. [email or web address]
--- NOTE | 2024-11-11 14:12 | XR_ITS ---
WS: [id number] XR chest 1V portable [id number] REASON FOR EXAM: RT HIP FX; PRE OP CLEARANCE; SOB FINDINGS: The chest is notably unchanged compared to 08/08/2022. There is moderate tortuosity and ectasia of thoracic aorta with normal heart size. There is calcified granulomatous disease bilaterally. No acute pulmonary parenchymal or pleural abnormality is identified. Mild degenerative spondylosis in the mid thoracic spine. XR/XR chest 1V portable [id number] IMPRESSION: Stable chest without acute abnormality.
[2024-11-11 14:57] LABS: Basophils % 0.3 %; Eosinophils # 0.1 10^3/uL (0.0-0.8); Eosinophils % 0.7 %; Hematocrit 40.9 % (36-47); Lymphocytes # 0.9 10^3/uL (0.8-4.8); Lymphocytes % 6.4 %; Mean Corpuscular HGB Conc 31.8 g/dL (30-55); Mean Corpuscular Hemoglobin 29.6 pg (27-33); Mean Corpuscular Volume 93.2 fl (85-98); Mean Platelet Volume 10.3 fL (7.4-10.4); Monocytes # 0.9 10^3/uL (0.2-0.9); Monocytes % 6.1 %; Neutrophils # 12.31 10^3/uL (1.8-7.7); Neutrophils % 85.9 %; Nucleated Red Blood Cells % 0 %; Platelet Count 163 10^3/cmm (157-399); Red Blood Count 4.39 10^6/uL (3.85-5.65); Red Cell Distribution Width 14.3 % (12.1-15.1); White Blood Count 14.33 10^3/uL (3.29-11.43)
[2024-11-11 15:11] LABS: INR 0.91 (0.8-1.2)
[2024-11-11 15:18] LABS: Alanine Aminotransferase 25 U/L (0-33); Albumin Level 3.9 g/dL (3.5-5.2); Alkaline Phosphatase 85 U/L (35-105); Anion Gap 13.5 (5-19); Aspartate Amino Transferase 24 U/L (0-32); Blood Urea Nitrogen 17 mg/dL (8-23); Calcium 9.5 mg/dL (8.5-10.5); Carbon Dioxide 27 mmol/L (22-29); Chloride 105 mmol/L (98-107); Globulin 2.1 g/dL (1.3-4.6); Glucose 98 mg/dL (65-115); Osmolality Calculated 296 mOsm/kg (285-295); Potassium 3.5 mmol/L (3.5-5.1); Sodium 142 mmol/L (136-145); Total Bilirubin 0.4 mg/dL (0.15-1.2); Troponin(5th) Baseline 12 ng/L (0-10)
--- NOTE | 2024-11-11 16:19 | ECG_ITS ---
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
[2024-11-11 17:24] LABS: Add Urine Microscopic? NO
[2024-11-11 17:34] LABS: Troponin 5 2HR 10.31 ng/L (0-10)
[2024-11-11 17:39] LABS: Troponin 5 2HR Delta -1.69 ABS# (0-10)
--- NOTE | 2024-11-11 17:48 | PC.NURSE ---
pt O2 sat continues to vary between 89% and 90% on RA, Dr. Morales notified and okayed pt to be put on O2, Pt placed on 1L NC.
[2024-11-11 18:03] LABS: Bilirubin Urine Neg (Negative); Blood Urine Neg (Negative); Glucose Urine UA Norm (Normal); Ketones Urine Negative (Negative); Leukocyte Esterase Urine Negative (Negative); Nitrate Urine Negative (Negative); Protein Urine Neg (Negative); Urine Appearance Clear (CLEAR); Urine Color Yellow (Yellow); Urobilinogen Urine Norm (Negative); pH Urine 6 (5-7)
[2024-11-11 18:04] LABS: Charge for UA Resulting for Rev
--- NOTE | 2024-11-11 18:08 | PM.HP ---
Providers/Chief Complaint Primary Care Provider: Paulina Brewster DO Chief Complaint: Fall History of Present Illness Molly Rolle is a 84 year old female with past medical history of hypertension, dementia who presents to the ER today after having mechanical fall while trying to get out of the recliner and fell on the right side after which side having pain in her right hip. Found to have right subcapital femoral fracture. Review of Systems General: Reports: 10 or more systems reviewed and unremarkable except in HPI and below Const: Denies: fever(s), chills, body aches, change in appetite, change in weight, malaise, night sweats, diaphoresis, change in sleep pattern, daytime sleepiness or snoring Eyes: Denies: change in vision, blurry vision, photophobia, eye discomfort or eye discharge ENMT: Denies: throat pain, enlarged tonsils, hoarseness, mouth pain, oral sores, dry mouth, tinnitus, nasal congestion or post nasal drip Card: Denies: chest pain, palpitations, irregular heart rhythm, edema, swelling of feet/ankles, lightheadedness, syncope, pre-syncope, dyspnea on exertion, orthopnea, leg pain with exertion or acrocyanosis Resp: Denies: dyspnea, productive cough, non-productive cough, wheezing, stridor, pain on inspiration, change in phlegm color, hemoptysis or chest congestion GI: Denies: abdominal pain, nausea, vomiting, hematemesis, coffee ground emesis, dysphagia, heartburn, diarrhea, constipation, bloating, GI cramping, change in bowel habits, pain on defecation, hematochezia or melena : Denies: flank pain, dysuria, urinary frequency, urinary urgency, urinary hesitancy, nocturia or hematuria Musc: Denies: neck pain, back pain, extremity pain, joint pain, joint swelling, joint redness, joint stiffness or limited range of motion Neuro: Denies: headache(s), numbness in extremities, weakness in extremities, sensory changes, lack of coordination, difficulty walking, frequent falls, dizziness, vertigo, confusion, Slurred speech present, difficulty communicating thoughts or seizure-like activity Psych: Denies: anxiety, depression, mood swings, panic attacks, hopelessness or irritability Endo: Denies: polyuria, polydipsia, tired all the time, cold intolerance, excessive sweating, flushing or heat intolerance Antelmo/Lymph: Denies: easy bruising or easy bleeding All/Imm: Denies: tongue swelling, facial swelling or acute wheezing Medications/Allergies Home Medications ?Medication ?Instructions ?Recorded ?Confirmed ?Last Taken ?Type losartan 50 mg tablet 50 mg PO QAM 07/21/20 11/11/24 11/11/24 History aspirin 325 mg tablet 325 mg PO QAM 06/09/21 11/11/24 11/11/24 History albuterol sulfate 2.5 mg/3 mL 2.5 mg (3 mL) inhalation Q4H PRN 10/25/24 11/11/24 Unknown Rx (0.083 %) solution for nebulization shortness of breath or wheezing #90 mL alprazolam 0.5 mg tablet 0.25 mg PO QAM 10/25/24 11/11/24 11/11/24 History amlodipine 5 mg tablet 2.5 mg PO BEDTIME 10/25/24 11/11/24 11/10/24 History atorvastatin 40 mg tablet 40 mg PO BEDTIME 10/25/24 11/11/24 11/10/24 History calcium 600 mg (as 1 cap PO BID 10/25/24 11/11/24 11/11/24 History carbonate)-vitamin D3 12.5 mcg (500 unit) capsule (Calcium with Vit D3) cetirizine 10 mg tablet (Zyrtec) 10 mg PO DAILY PRN allergies 10/25/24 11/11/24 11/11/24 History memantine 10 mg tablet 10 mg PO BID 10/25/24 11/11/24 11/11/24 History mirtazapine 15 mg tablet 15 mg PO BEDTIME 10/25/24 11/11/24 11/10/24 History oxybutynin chloride 5 mg tablet 5 mg PO BEDTIME 10/25/24 11/11/24 11/10/24 History potassium citrate 99 mg capsule 99 mg PO BEDTIME 10/25/24 11/11/24 11/10/24 History prednisone 20 mg tablet 20 mg PO DAILY 5 days #5 tabs 10/25/24 11/11/24 11/11/24 Rx sertraline 100 mg tablet 100 mg PO BEDTIME 10/25/24 11/11/24 11/11/24 History multivitamin 1 tab PO QAM 11/11/24 11/11/24 11/11/24 History polyethylene glycol 3350 17 7.5 g PO BEDTIME 11/11/24 11/11/24 11/10/24 History gram/dose oral powder (Miralax) turmeric root extract 500 mg tablet 500 mg PO BID 11/11/24 11/11/24 11/11/24 History vit C 250 mg-vit E 90 mg-zinc 40 1 tab PO BID 11/11/24 11/11/24 11/11/24 History mg-copper 1 [id number] capsule (PreserVision AREDS-2) Allergies Allergy/AdvReac Type Severity Reaction Status Date / Time bromide salts Allergy Unknown Verified 10/25/24 16:20 PFSH Acute PFSH: Medical History (Updated 11/11/24 @ 18:40 by Lonnie Avendano MD) CVA (cerebral vascular accident) Osteoporosis Anxiety Femoral hernia Hypertension Dyslipidemia Diverticulitis Surgical History History of femoral hernia repair Hx of colonoscopy Family History Denies family history of CAD (coronary artery disease) Social History Smoking and tobacco/nicotine status: never used tobacco/nicotine Alcohol intake: never Substance/Drug Use: never Household members: spouse Housing: House Vitals/I&O/Wt Last Vital Signs Temp 98.7 F 11/11/24 17:44 Pulse 90 11/11/24 17:11 Resp 15 11/11/24 13:32 BP 167/75 11/11/24 17:11 Pulse Ox 93 11/11/24 17:11 O2 Del Method Room Air 11/11/24 17:11 Weight last 48 hrs Weight 54.431 kg Physical Exam Narrative: General: No acute distress, AO x3 HEENT: PERRLA, pupils bilaterally equal and reactive Chest: Normal vesicular breath sounds, no added sounds, equal good air entry bilaterally CVS: S1-S2 regular, no murmurs, no tachycardia, no gallops, no rubs Abdomen: Soft, nontender, no organomegaly, bowel sounds present Neuro: No focal deficits, no facial deformity, AO x3, power 5/5 in all limbs Urinary Catheter Management: Martínez: Cath Placed During This Visit: yes Urinary Catheter Date of Insertion: 11/11/24 Urinary Catheter Time of Insertion: 17:00 Data 11/11/24 14:49 11/11/24 14:49 A&P Assessment and plan (1) Closed fracture of right hip: Post mechanical fall. Seen on x-ray. Orthopedic consulted from the ER. Plan for ORIF in a.m. N.p.o. after midnight. Monitor hemoglobin. [place] 5 mg every 6 hour as needed, IV morphine 2 mg IV 4 hours as needed for pain control. Qualifiers: Encounter type: initial encounter Qualified Code(s): S72.001A - Fracture of unspecified part of neck of right femur, initial encounter for closed fracture (2) Dementia: Continue with chronic home medications including Xanax every morning, memantine 10 mg twice daily, sertraline at bedtime. (3) Hypertension: Goal blood pressure less than 140/90 mmHg. Continue with home dose of amlodipine, losartan. Uptitrate as per goal blood pressure. Plan Leukocytosis: Denies any dysuria. Appreciate UA and chest x-ray. Leukocytosis most likely in setting of steroid 20 mg oral daily which she has been taking recently for viral symptoms. Empirically start on IV ceftriaxone for now. If remains afebrile will discontinue next 24 to 48 hours. CODE STATUS: Discussed needed with the patient. Daughter will be the DPOA. Full code. Cardiac diet, n.p.o. after midnight. Heparin 5000 Q12 hourly for DVT prophylaxis Famotidine for PUD prophylaxis PDMP PDMP Reviewed: Not Reviewed Attestations Medical Necessity Statement*: Admission for than 2 midnights for management of closed right hip fracture requiring ORIF in a patient with history of dementia and hypertension Diagnoses Closed fracture of right hip S72.001A Encounter type: initial encounter Dementia F03.90 Hypertension I10
[2024-11-11 18:29] LABS: Lactic Sepsis W/Reflex 0.8 mmol/L (0.5-2.2)
--- NOTE | 2024-11-11 20:23 | ECG_ITS ---
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
[2024-11-11] MEDS: atorvastatin 40 mg Tablet PO (20:48)
[2024-11-11] MEDS: acetaminophen 325 mg Tablet 650 MG PO (20:48)
[2024-11-11] MEDS: oxybutynin 5 mg Tablet PO (20:48)
[2024-11-11] MEDS: heparin 5,000 unit/mL INJ 1 mL 5000 UNIT SUBCUT (20:48)
[2024-11-11] MEDS: amlodipine 5 mg Tablet 2.5 MG PO (20:48)
[2024-11-11] MEDS: sertraline 100 mg Tablet PO (20:48)
[2024-11-11] MEDS: cefTRIAXone 1,000 mg SDV 1000 MG IVP (20:48)
[2024-11-11 21:52] LABS: Troponin 5 6HR 14.87 ng/L (0-10); Troponin 5 6HR Delta 2.87 ng/L (0-12)
[2024-11-11 22:08] LABS: Estmated Average Glucose 100; Hemoglobin A1C 5.1 % (4.0-6.0)
[2024-11-11 23:46] LABS: Iron 27 ug/dL (37-145); Percent Saturation 11.9 % (20-50); Thyroid Stimulating Hormone 2.54 uIU/mL (0.27-4.20); Total Iron Binding Capacity 226 mcg/dl; Unsaturated Iron Binding 199 ug/dL (112-347); Vitamin B12 609 pg/mL (232-1245)
[2024-11-12] VITALS (23 sets, daily range): BP systolic 105–163; BP diastolic 58–107; PULSE 72–117; RESP 15–18; TEMP 36.3–37.1; O2SAT 91–100; BMI 18.6
[2024-11-12 04:57] LABS: Basophils % 0.2 %; Eosinophils # 0.3 10^3/uL (0.0-0.8); Eosinophils % 2.9 %; Hematocrit 38.8 % (36-47); Lymphocytes # 0.9 10^3/uL (0.8-4.8); Lymphocytes % 10.4 %; Mean Corpuscular HGB Conc 32.7 g/dL (30-55); Mean Corpuscular Hemoglobin 29.5 pg (27-33); Mean Corpuscular Volume 90.2 fl (85-98); Mean Platelet Volume 10.7 fL (7.4-10.4); Monocytes # 0.6 10^3/uL (0.2-0.9); Monocytes % 6.6 %; Neutrophils # 6.86 10^3/uL (1.8-7.7); Neutrophils % 79.6 %; Nucleated Red Blood Cells % 0 %; Platelet Count 152 10^3/cmm (157-399); Red Cell Distribution Width 14.3 % (12.1-15.1); White Blood Count 8.63 10^3/uL (3.29-11.43)
[2024-11-12 05:17] LABS: Alanine Aminotransferase 23 U/L (0-33); Albumin Level 3.5 g/dL (3.5-5.2); Alkaline Phosphatase 74 U/L (35-105); Aspartate Amino Transferase 20 U/L (0-32); Blood Urea Nitrogen 15 mg/dL (8-23); Calcium 8.7 mg/dL (8.5-10.5); Carbon Dioxide 27 mmol/L (22-29); Chloride 106 mmol/L (98-107); Globulin 2.4 g/dL (1.3-4.6); Glucose 99 mg/dL (65-115); Magnesium 1.8 mg/dL (1.7-2.3); Osmolality Calculated 295 mOsm/kg (285-295); Phosphorus 2.9 mg/dL (2.5-4.5); Sodium 142 mmol/L (136-145); Total Bilirubin 0.5 mg/dL (0.15-1.2); Total Protein 5.9 g/dL (6.6-8.7)
[2024-11-12 05:22] LABS: Procalcitonin 0.35 ng/mL (0-0.5)
[2024-11-12 05:25] LABS: Chol HDL Ratio 1.75 mg/dL (0.0-4.40); Cholesterol 114 mg/dL (0-200); HDL Cholesterol 65 mg/dL (60-100); LDL Cholesterol Calculated 31 mg/dL (50-129); LDL HDL Ratio 0.48 RATIO (0.00-3.22); Triglycerides 90 mg/dL (0-150)
[2024-11-12] MEDS: ALPRAZolam 0.5 mg Tablet 0.25 MG PO (05:40)
[2024-11-12] MEDS: losartan 50 mg Tablet PO (05:41)
[2024-11-12 05:57] LABS: Folate Level > 20.0 ng/mL (4.8-37.3)
--- NOTE | 2024-11-12 08:11 | PM.CONSULT ---
Providers/Reason For Consult Consulting Physician/Specialty*: Oniel Garcia MD/orthopedic surgery Reason for Consult*: Right hip fracture Attending Physician: Lonnie Avendano MD Primary Care Provider: Paulina Brewster DO History of Present Illness History of Present Illness Molly Rolle is a 84 year old female who resides in her own home. She indicates that yesterday she fell at home injuring her right hip. Was unable to bear weight and was brought to the emergency room where x-rays demonstrated a subcapital fracture right hip. Patient was admitted through the hospitalist service and orthopedic consultation was obtained. Patient was awake and alert in her bed this a.m. with her daughter present. Patient is understanding of the situation and the fact that surgical intervention more likely would be beneficial for her. Daughter also appears to be understanding also. Patient has no other complaints Medications/Allergies Home Medications ?Medication ?Instructions ?Recorded ?Confirmed ?Last Taken ?Type losartan 50 mg tablet 50 mg PO QAM 07/21/20 11/11/24 11/11/24 History aspirin 325 mg tablet 325 mg PO QAM 06/09/21 11/11/24 11/11/24 History albuterol sulfate 2.5 mg/3 mL 2.5 mg (3 mL) inhalation Q4H PRN 10/25/24 11/11/24 Unknown Rx (0.083 %) solution for nebulization shortness of breath or wheezing #90 mL alprazolam 0.5 mg tablet 0.25 mg PO QAM 10/25/24 11/11/24 11/11/24 History amlodipine 5 mg tablet 2.5 mg PO BEDTIME 10/25/24 11/11/24 11/10/24 History atorvastatin 40 mg tablet 40 mg PO BEDTIME 10/25/24 11/11/24 11/10/24 History calcium 600 mg (as 1 cap PO BID 10/25/24 11/11/24 11/11/24 History carbonate)-vitamin D3 12.5 mcg (500 unit) capsule (Calcium with Vit D3) cetirizine 10 mg tablet (Zyrtec) 10 mg PO DAILY PRN allergies 10/25/24 11/11/24 11/11/24 History memantine 10 mg tablet 10 mg PO BID 10/25/24 11/11/24 11/11/24 History mirtazapine 15 mg tablet 15 mg PO BEDTIME 10/25/24 11/11/24 11/10/24 History oxybutynin chloride 5 mg tablet 5 mg PO BEDTIME 10/25/24 11/11/24 11/10/24 History potassium citrate 99 mg capsule 99 mg PO BEDTIME 10/25/24 11/11/24 11/10/24 History prednisone 20 mg tablet 20 mg PO DAILY 5 days #5 tabs 10/25/24 11/11/24 11/11/24 Rx sertraline 100 mg tablet 100 mg PO BEDTIME 10/25/24 11/11/24 11/11/24 History multivitamin 1 tab PO QAM 11/11/24 11/11/24 11/11/24 History polyethylene glycol 3350 17 7.5 g PO BEDTIME 11/11/24 11/11/24 11/10/24 History gram/dose oral powder (Miralax) turmeric root extract 500 mg tablet 500 mg PO BID 11/11/24 11/11/24 11/11/24 History vit C 250 mg-vit E 90 mg-zinc 40 1 tab PO BID 11/11/24 11/11/24 11/11/24 History mg-copper 1 [id number] capsule (PreserVision AREDS-2) Allergies Allergy/AdvReac Type Severity Reaction Status Date / Time bromide salts Allergy Unknown Verified 10/25/24 16:20 Current Medications Generic Name Dose Route Start Last Admin Trade Name Freq PRN Reason Stop Dose Admin Acetaminophen 650 mg 11/11/24 20:16 11/11/24 20:48 Acetaminophen 325 Mg Tablet PO 650 mg Q6H PRN Administration Mild/Mod Pain Or Temp >/= 101 Alprazolam 0.25 mg 11/12/24 06:00 11/12/24 05:40 Alprazolam 0.5 Mg Tablet PO 0.25 mg QAM SAM Administration Amlodipine Besylate 2.5 mg 11/11/24 21:00 11/11/24 20:48 Amlodipine 5 Mg Tablet PO 2.5 mg BEDTIME SAM Administration Atorvastatin Calcium 40 mg 11/11/24 21:00 11/11/24 20:48 Atorvastatin 40 Mg Tablet PO 40 mg BEDTIME SAM Administration Ceftriaxone Sodium 1,000 mg 11/11/24 20:16 11/11/24 20:48 Ceftriaxone 1,000 Mg Sdv IVP 1,000 mg Q24H SAM Administration Protocol Heparin Sodium (Porcine) 5,000 unit 11/11/24 20:16 11/11/24 20:48 Heparin 5,000 Unit/Ml Inj 1 Ml SUBCUT 5,000 unit Q12H SAM Administration Losartan Potassium 50 mg 11/12/24 06:00 11/12/24 05:41 Losartan 50 Mg Tablet PO 50 mg QAM SAM Administration Oxybutynin Chloride 5 mg 11/11/24 21:00 11/11/24 20:48 Oxybutynin 5 Mg Tablet PO 5 mg BEDTIME SAM Administration Sertraline HCl 100 mg 11/11/24 21:00 11/11/24 20:48 Sertraline 100 Mg Tablet PO 100 mg BEDTIME SAM Administration Additional Medication Information X-rays reviewed demonstrate a subcapital fracture this displaced of the right hip. No other pathology was identified PFSH Acute PFSH: Medical History (Updated 11/12/24 @ 08:16 by Oniel Garcia MD) CVA (cerebral vascular accident) Osteoporosis Anxiety Femoral hernia Hypertension Dyslipidemia Diverticulitis Surgical History History of femoral hernia repair Hx of colonoscopy Family History Denies family history of CAD (coronary artery disease) Social History Smoking and tobacco/nicotine status: never used tobacco/nicotine Alcohol intake: never Substance/Drug Use: never Household members: spouse Housing: House Vitals/I&O/Wt Last Vital Signs Temp 98.7 F 11/12/24 05:21 Pulse 88 11/12/24 06:00 Resp 16 11/12/24 05:21 BP 136/70 11/12/24 05:41 Pulse Ox 96 11/12/24 05:21 O2 Del Method Nasal Cannula 11/12/24 03:51 O2 Flow Rate 1 11/12/24 05:21 11/11/24 11/12/24 11/12/24 22:59 06:59 14:59 Intake Total 240 / 240 Balance 240 / 240 Weight last 48 hrs Weight 112 lb Weight 112 lb 11.2 oz Weight 120 lb Physical Exam Narrative: Orthopedic exam today the patient is laying in bed. Leg is slightly shortened and internally rotated. She does not care for any motion of the hip. He is tender to palpation of the area. Otherwise no other injuries to this lower extremity. She does have a large skin lacerations of her forearm on the right but this covered with dressings at this time. No other abnormalities are noted. Urinary Catheter Management: Martínez: Cath Placed During This Visit: yes Reason for Continuing Indwelling Catheter: Required Immobilization for Trauma or Surgery or Anesthesia Urinary Catheter Date of Insertion: 11/11/24 Urinary Catheter Time of Insertion: 17:00 Data 11/12/24 04:35 11/12/24 04:35 A&P Assessment and plan (1) Hip fracture, right: Patient has a subcapital fracture of the right hip that is displaced and angulated. Qualifiers: Encounter type: initial encounter Fracture type: closed Qualified Code(s): S72.001A - Fracture of unspecified part of neck of right femur, initial encounter for closed fracture Plan Plan at this time is for endoprosthetic replacement of her right hip. All risk benefits treatment alternatives been discussed with she and her daughter and they are agreeable to this at this time. Patient is now n.p.o. and surgical intervention is planned for later today. PDMP PDMP Reviewed: Not Reviewed Coding Level of Care Code Critical Care >/= 30 minutes Diagnoses Closed fracture of right hip, initial encounter S72.001A Encounter type: initial encounter Fracture type: closed
[2024-11-12] MEDS: pantoprazole DR 40 mg Tablet PO (09:31)
[2024-11-12] MEDS: docusate sodium 100 mg Capsule PO (09:32)
[2024-11-12] MEDS: memantine 5 mg tablet 10 MG PO (09:32)
[2024-11-12] MEDS: predniSONE 20 mg Tablet PO (09:32)
--- NOTE | 2024-11-12 09:50 | PC.CHAP ---
Pastoral Care Encounter/Spiritual Assessment Type of Contact [] Declined sanitor visit [] Patient/Family/Request visit [] Outpatient visit [] Follow-up visit [] Physician referral [] Code/Alert [x] Routine visit [] Staff referral [] Actively dying [] Patient sleeping [] Family support [] [] Out of room [] Palliative care [] [] Receiving care in room [] Pre-surgical visit [] Trauma [] Long length of stay [] ICU visit [] Other: Relational/Emotional Strength [x] Patient feels connected with others/family/visitors/staff [] Distress [] Loneliness/isolation [] Abandonment Spirituality of Patient [x] Person of Stephanie [] Attends Anglican of their Stephanie [x] Believes in Prayer [] Reads Bible or Adventist materials [] There are Spiritual issues to be addressed Network [employer]or Interventions [x] Prayer [x] Active listening [] Non-anxious presence [x] Spiritual/emotional support [] Crisis/trauma care [] Spiritual counseling [] Bereavement support [] Provided bereavement packet [] Provided Bible/devotional materials [] Provided toy/stuffed animal, coloring book to patient or family member [] Provided Communion [] Anointing/[place] [] Salvation [x] Completed spiritual assessment [] Other: Impact on Illness or Injury [] Angry [] Fearful [] Anxious [] Often cries [] Exhaustion [] Unable to work [] Unable to attend samaritan [] Unable to walk/stand [] Unable to read [] Unable to drive [] Unable to eat/drink [] Unable to sleep [] Unable to be with family [] Patient intubated [] Other: Summary Time spent with patient 5 min
--- NOTE | 2024-11-12 12:35 | ANES.PREANE2 ---
Pre-Anesthetic Assessment Height/Weight: Height 1.65 m Weight 50.802 kg Temp Pulse Resp BP Pulse Ox O2 Del Method O2 Flow Rate 98.1 F 83 16 131/73 96 Room Air 2 11/12/24 12:08 11/12/24 12:08 11/12/24 12:08 11/12/24 12:08 11/12/24 12:08 11/12/24 12:08 11/12/24 10:21 Preop Diagnosis: Right femoral neck fracture Operation Date: 11/12/24 16:30 Proposed Procedures p Hemiarthroplasty Hip(Right) - Oniel Garcia MD Familial anesthetic complications: None Was Beta Marlena taken within 24 hours: N/A Was Clonidine taken within 24 hours: N/A Last intake: Intake Last Liquid Date 11/12/24 Last Liquid Time 06:00 Last Solid Date 11/11/24 Last Solid Time 12:00 Social No alcohol and No tobacco Exam alert, oriented x 3, clear to auscultation bilaterally and regular rate & rhythm Airway Mallampati: Class II CV/HEM Hypertension Neuropsych Cerebrovascular Accident Anesthetic Plan ASA status: 3 Anesthesia: General Risk of > 500 ml blood loss (7ml/kg in children): No Medications/Allergies Home Medications ?Medication ?Instructions ?Recorded ?Confirmed ?Last Taken ?Type losartan 50 mg tablet 50 mg PO QAM 07/21/20 11/11/24 11/11/24 History aspirin 325 mg tablet 325 mg PO QAM 06/09/21 11/11/24 11/11/24 History albuterol sulfate 2.5 mg/3 mL 2.5 mg (3 mL) inhalation Q4H PRN 10/25/24 11/11/24 Unknown Rx (0.083 %) solution for nebulization shortness of breath or wheezing #90 mL alprazolam 0.5 mg tablet 0.25 mg PO QAM 10/25/24 11/11/24 11/11/24 History amlodipine 5 mg tablet 2.5 mg PO BEDTIME 10/25/24 11/11/24 11/10/24 History atorvastatin 40 mg tablet 40 mg PO BEDTIME 10/25/24 11/11/24 11/10/24 History calcium 600 mg (as 1 cap PO BID 10/25/24 11/11/24 11/11/24 History carbonate)-vitamin D3 12.5 mcg (500 unit) capsule (Calcium with Vit D3) cetirizine 10 mg tablet (Zyrtec) 10 mg PO DAILY PRN allergies 10/25/24 11/11/24 11/11/24 History memantine 10 mg tablet 10 mg PO BID 10/25/24 11/11/24 11/11/24 History mirtazapine 15 mg tablet 15 mg PO BEDTIME 10/25/24 11/11/24 11/10/24 History oxybutynin chloride 5 mg tablet 5 mg PO BEDTIME 10/25/24 11/11/24 11/10/24 History potassium citrate 99 mg capsule 99 mg PO BEDTIME 10/25/24 11/11/24 11/10/24 History prednisone 20 mg tablet 20 mg PO DAILY 5 days #5 tabs 10/25/24 11/11/24 11/11/24 Rx sertraline 100 mg tablet 100 mg PO BEDTIME 10/25/24 11/11/24 11/11/24 History multivitamin 1 tab PO QAM 11/11/24 11/11/24 11/11/24 History polyethylene glycol 3350 17 7.5 g PO BEDTIME 11/11/24 11/11/24 11/10/24 History gram/dose oral powder (Miralax) turmeric root extract 500 mg tablet 500 mg PO BID 11/11/24 11/11/24 11/11/24 History vit C 250 mg-vit E 90 mg-zinc 40 1 tab PO BID 11/11/24 11/11/24 11/11/24 History mg-copper 1 [id number] capsule (PreserVision AREDS-2) Allergies Allergy/AdvReac Type Severity Reaction Status Date / Time bromide salts Allergy Unknown Verified 10/25/24 16:20 Current Medications Generic Name Dose Route Start Last Admin Trade Name Freq PRN Reason Stop Dose Admin Acetaminophen 650 mg 11/11/24 20:16 11/11/24 20:48 Acetaminophen 325 Mg Tablet PO 650 mg Q6H PRN Administration Mild/Mod Pain Or Temp >/= 101 Alprazolam 0.25 mg 11/12/24 06:00 11/12/24 05:40 Alprazolam 0.5 Mg Tablet PO 0.25 mg QAM SAM Administration Amlodipine Besylate 2.5 mg 11/11/24 21:00 11/11/24 20:48 Amlodipine 5 Mg Tablet PO 2.5 mg BEDTIME SAM Administration Atorvastatin Calcium 40 mg 11/11/24 21:00 11/11/24 20:48 Atorvastatin 40 Mg Tablet PO 40 mg BEDTIME SAM Administration Ceftriaxone Sodium 1,000 mg 11/11/24 20:16 11/11/24 20:48 Ceftriaxone 1,000 Mg Sdv IVP 1,000 mg Q24H SAM Administration Protocol Docusate Sodium 100 mg 11/12/24 09:00 11/12/24 09:32 Docusate Sodium 100 Mg Capsule PO 100 mg BID SAM Administration Heparin Sodium (Porcine) 5,000 unit 11/11/24 20:16 11/12/24 09:29 Heparin 5,000 Unit/Ml Inj 1 Ml SUBCUT Not Given Q12H SAM Losartan Potassium 50 mg 11/12/24 06:00 11/12/24 05:41 Losartan 50 Mg Tablet PO 50 mg QAM SAM Administration Memantine 10 mg 11/12/24 09:00 11/12/24 09:32 Memantine 5 Mg Tablet PO 10 mg BID SAM Administration Oxybutynin Chloride 5 mg 11/11/24 21:00 11/11/24 20:48 Oxybutynin 5 Mg Tablet PO 5 mg BEDTIME SAM Administration Pantoprazole Sodium 40 mg 11/12/24 09:00 11/12/24 09:[address] 40 Mg Tablet PO 40 mg DAILY SAM Administration Prednisone 20 mg 11/12/24 09:00 11/12/24 09:32 Prednisone 20 Mg Tablet PO 20 mg DAILY SAM Administration Sertraline HCl 100 mg 11/11/24 21:00 11/11/24 20:48 Sertraline 100 Mg Tablet PO 100 mg BEDTIME SAM Administration Additional Medication Information X-rays reviewed demonstrate a subcapital fracture this displaced of the right hip. No other pathology was identified [facility] Anesthesia Medical History (Updated 11/12/24 @ 08:16 by Oniel Garcia MD) CVA (cerebral vascular accident) Osteoporosis Anxiety Femoral hernia Hypertension Dyslipidemia Diverticulitis Surgical History History of femoral hernia repair Hx of colonoscopy Family History Denies family history of CAD (coronary artery disease) Social History Smoking and tobacco/nicotine status: never used tobacco/nicotine Alcohol intake: never Substance/Drug Use: never Household members: spouse Housing: House Data Anesthesia 11/12/24 04:35 11/12/24 04:35 Short CBC 11/11/24 11/12/24 Range/Units 14:49 04:35 WBC 14.33 H 8.63 (3.29-11.43) 10^3/uL Hgb 13.00 12.70 (11.27-16.99) g/dL Hct 40.9 38.8 (36-47) % MCV 93.2 90.2 (85-98) fl Plt Count 163 152 L (157-399) 10^3/cmm Neut % (Auto) 85.9 79.6 % Neut # (Auto) 12.31 H 6.86 (1.8-7.7) 10^3/uL BMP 11/11/24 11/12/24 14:49 04:35 Sodium 142 142 Potassium 3.5 3.0 L Chloride 105 106 Carbon Dioxide 27 27 BUN 17 15 Creatinine 0.8 0.9 Glucose 98 99 Calcium 9.5 8.7 Cardiac Enzymes 11/11/24 11/11/24 11/11/24 Range/Units 14:49 16:34 20:49 Troponin T Baseline 12 H (0-10) ng/L Troponin T 120 Minute 10.31 H (0-10) ng/L Delta Troponin T -1.69 L (0-10) ABS# Troponin T Hi Sens 6Hr 14.87 H (0-10) ng/L Troponin T Hi Sens 6Hr Delta 2.87 (0-12) ng/L Liver Function 11/11/24 11/12/24 Range/Units 14:49 04:35 Total Bilirubin 0.4 0.5 (0.15-1.2) mg/dL AST 24 20 (0-32) U/L ALT 25 23 (0-33) U/L Alkaline Phosphatase 85 74 (35-105) U/L Albumin 3.9 3.5 (3.5-5.2) g/dL Urine 11/11/24 Range/Units 17:00 Urine Color Yellow (Yellow) Urine Appearance Clear (CLEAR) Urine pH 6 (5-7) Ur Specific [place] 1.020 (1.005-1.030) Urine Protein Neg (Negative) Urine Glucose (UA) Norm (Normal) Urine Ketones Negative (Negative) Urine Nitrate Negative (Negative) Urine Bilirubin Neg (Negative) Ur Leukocyte Esterase Negative (Negative) Coags 11/11/24 14:49 PT 12.90 INR 0.91 Cardiac Studies: Echocardiogram 08/24/22 Cardiac Event Monitor 06/27/22
--- NOTE | 2024-11-12 12:41 | P.PN_ITS ---
Subjective 2 Subjective: Hemoglobins overnight. Seen with family at bedside. Awaiting ORIF. Hemodynamically stable. Pain well-controlled. Vitals/I&O/Wt Last Vital Signs Temp 98.1 F 11/12/24 12:08 Pulse 83 11/12/24 12:08 Resp 16 11/12/24 12:08 BP 131/73 11/12/24 12:08 Pulse Ox 96 11/12/24 12:08 O2 Del Method Room Air 11/12/24 12:08 O2 Flow Rate 2 11/12/24 10:21 11/11/24 11/12/24 11/12/24 22:59 06:59 14:59 Intake Total 240 / 240 Output Total 750 / 750 Balance 240 / 240 -750 / -750 Weight last 48 hrs Weight 50.802 kg Weight 51.12 kg Weight 54.431 kg Physical Exam 2 Narrative: General: No acute distress, AO x3 HEENT: PERRLA, pupils bilaterally equal and reactive Chest: Normal vesicular breath sounds, no added sounds, equal good air entry bilaterally CVS: S1-S2 regular, no murmurs, no tachycardia, no gallops, no rubs Abdomen: Soft, nontender, no organomegaly, bowel sounds present Neuro: No focal deficits, no facial deformity, AO x3, power 5/5 in all limbs Urinary Catheter Management: Martínez: Cath Placed During This Visit: yes Reason for Continuing Indwelling Catheter: Required Immobilization for Trauma or Surgery or Anesthesia Urinary Catheter Date of Insertion: 11/11/24 Urinary Catheter Time of Insertion: 17:00 Data 11/12/24 04:35 11/12/24 04:35 A&P Assessment and plan (1) Closed fracture of right hip: Post mechanical fall. Seen on x-ray. Orthopedic consulted from the ER. Plan for ORIF in a.m. N.p.o. after midnight. Monitor hemoglobin. [place] 5 mg every 6 hour as needed, IV morphine 2 mg IV 4 hours as needed for pain control. Qualifiers: Encounter type: initial encounter Qualified Code(s): S72.001A - Fracture of unspecified part of neck of right femur, initial encounter for closed fracture (2) Dementia: Continue with chronic home medications including Xanax every morning, memantine 10 mg twice daily, sertraline at bedtime. (3) Hypertension: Goal blood pressure less than 140/90 mmHg. Continue with home dose of amlodipine, losartan. Uptitrate as per goal blood pressure. Plan Leukocytosis: Denies any dysuria. Appreciate UA and chest x-ray. Leukocytosis most likely in setting of steroid 20 mg oral daily which she has been taking recently for viral symptoms. Empirically start on IV ceftriaxone for now. If remains afebrile will discontinue next 24 to 48 hours. CODE STATUS: Discussed needed with the patient. Daughter will be the DPOA. Full code. Cardiac diet, n.p.o. after midnight. Heparin 5000 Q12 hourly for DVT prophylaxis Famotidine for PUD prophylaxis Plan for the day: Awaiting ORIF. Replace 40 mg of IV potassium. Leukocytosis resolved. Most likely reactive in nature. Continue with IV ceftriaxone 24 more hours. Will discontinue in AM. Blood pressure is well-controlled. At goal. Continue with current antihypertensive. PDMP PDMP Reviewed: Not Reviewed Attestations 2 Medical Necessity Statement*: Requested hospitalization for management of close right hip fracture requiring ORIF. Discharge planning is sought Diagnoses Closed fracture of right hip S72.001A Encounter type: initial encounter Dementia F03.90 Hypertension I10
[2024-11-12] MEDS: ceFAZolin 2,000 mg SDV 2000 MG IVP ×2 (13:25→20:50)
--- NOTE | 2024-11-12 14:58 | XR_ITS ---
WS: [id number] XR hip RT 2-3V wo/w pel* [id number] REASON FOR EXAM: arthroplasty right hip FINDINGS: Right hip arthroplasty with prosthetic replacement of femoral neck and head with [place] acetabulum. Components of the arthroplasty are intact and in proper position and alignment. XR/XR hip RT 2-3V wo/w pel* [id number] IMPRESSION: Right hip arthroplasty as above.
[2024-11-12] MEDS: morphine 4 mg/mL SDV 1 mL 2 MG IVP (16:20)
--- NOTE | 2024-11-12 16:23 | PM.OP ---
Operative Report Date of procedure: November 12, 2024 Surgeon: Oniel Garcia MD Procedure: Preoperative diagnosis: Subcapital fracture right hip Postoperative diagnosis: Same Procedure: Endoprosthetic replacement right hip fracture Surgeon: Oniel Garcia MD Anesthesia: General EBL: 150 cc Complications: None Indications: Daljit is a 84-year-old white female who fell yesterday injuring her right hip. She also sustained a large laceration on her right forearm. She was seen at [facility] emergency room and x-rays there demonstrated a subcapital fracture of her hip. This fracture was on the right side. Patient was admitted through the hospitalist service and orthopedic consultation was obtained. After orthopedic evaluation is felt patient would most benefit from endoprosthetic replacement of her hip to help with pain control and to hopefully return her back to her ambulatory status is soon as possible. All risk benefits treatment alternatives were discussed with she and her daughter and they are agreeable to this at this time. Procedure: After obtaining her consent he was taken into the operating room in her hospital bed and general anesthetic was administered. Once good anesthesia was achieved patient was placed over the operative table and then placed up in a lateral decubitus position right hip up. She was held on a pegboard in this lateral position and padded out appropriately. Right hip and leg were prepped and draped usual fashion. After surgical timeout the hip was flexed to 90 degrees and a minimally invasive incision was made directly over the superior aspect the greater the right hip dissection taken on down to subcutaneous tissues electrocautery the proximal IT band. Leg was gently internally rotated and dissection went on along the posterior aspect the greater trochanter moving all soft tissues down to the femoral neck. Deep retractors were placed at this point and capsule was opened up in a T-type fashion. Leg was then internally rotated to 90 degrees exposing the femoral neck. Proximal femur was templated for femoral neck cut. Neck cut was done with a sagittal saw. Osteotome was used to complete the And then using a bone scoop femoral neck was removed piecemeal with rongeur's. Then the femoral head was removed with a bone scoop. This was sized to size 42 femoral head at the back table. Trialed a size 42 head was placed within and manipulated found to be stable in this hip. This was then removed. Attention was then turned towards proximal femur. The leg internally rotated 90 degrees with box cut osteotome was used to make entry point into the proximal femur. Initial femoral sound was placed and impacted and removed. Subsequently broaching starting at size 1 and going up to a size 4 was done. A size 4 femoral broach was found to have good fit and fill. Therefore permanent size 4 portion growth femoral component was selected. Once this is placed and impacted. Trial head and necks are applied. Initially standard neck and 42 mm head hip was reduced but range of motion found to be stable. Leg lengths were found to be equal. Hip was dislocated trial components removed. Permanent standard neck with a 42 mm head was then placed together the back table and then placed on the [place] taper of the femoral component and impacted. It was found to be securely attached. Hip was reduced again put through range of motion found to be stable. Should be noted throughout the surgery there is multiple times the copious amounts of bulb lavage irrigation was used to remove bone fragments and to wash the wound. Right leg is then put up on a knee bump and the leg was slightly internally rotated. Capsule of the hip was then repaired with #1 Vicryl [id number] sutures. Deep fascia was repaired with #2 strata fix sutures. Subcutaneous tissue reapproximated with 2-0 Vicryl, skin was closed with a running subcuticular 3-0 strata fix suture. Wound was then sealed the perennial and then a Surgicel dressing was placed over this. Patient then awakened transferred to cover room stable condition
[2024-11-12] MEDS: mupirocin oint 22 gm 1 APPLIC NASAL (17:24)
[2024-11-12] MEDS: calcium carbonate 500 mg Chew Tablet 1000 MG PO (17:24)
[2024-11-12] MEDS: calcium carb-vit d 500mg-200unit 1 Tablet 1 EACH PO (17:24)
[2024-11-12] MEDS: sennosides-docusate Tablet 2 TAB PO (17:24)
[2024-11-12] MEDS: iron polysaccharide complex 150 mg Capsule PO (17:24)
[2024-11-12] MEDS: chlorhexidine gluconate 0.12% Btl 473 mL 30 ML MUCOUS MEM ×2 (17:25→20:50)
[2024-11-12] MEDS: HYDROcodone-acetaminophen 5-325 mg Tablet 1 TAB PO (18:32)
[2024-11-12] MEDS: atorvastatin 40 mg Tablet PO (20:50)
[2024-11-12] MEDS: oxybutynin 5 mg Tablet PO (20:50)
[2024-11-12] MEDS: potassium chloride ER 20 mEq Tablet 40 MEQ PO (21:06)
[2024-11-12] MEDS: lidocaine 1% 5 ML in potassium chloride premix 100 ML 26.25 ML IV (21:06)
[2024-11-13 00:34] VITALS: BP 118/62; PULSE 88; RESP 15; TEMP 36.7; O2SAT 97
[2024-11-13 00:54] VITALS: RESP 15; O2SAT 97
[2024-11-13] MEDS: morphine 4 mg/mL SDV 1 mL 2 MG IVP (00:54)
--- NOTE | 2024-11-13 05:32 | PC.NURSE ---
Per the nurse wait to collect vitals at a later time due to the patient not getting any sleep
[2024-11-13 05:33] VITALS: BMI 18.6
[2024-11-13] MEDS: HYDROcodone-acetaminophen 5-325 mg Tablet 1 TAB PO ×2 (05:58→13:55)
[2024-11-13] MEDS: ceFAZolin 2,000 mg SDV 2000 MG IVP ×2 (05:58→13:48)
[2024-11-13 05:59] LABS: Basophils % 0.3 %; Eosinophils # 0.2 10^3/uL (0.0-0.8); Eosinophils % 1.8 %; Hematocrit 34.1 % (36-47); Lymphocytes # 0.9 10^3/uL (0.8-4.8); Lymphocytes % 9.9 %; Mean Corpuscular HGB Conc 31.4 g/dL (30-55); Mean Corpuscular Hemoglobin 29.7 pg (27-33); Mean Corpuscular Volume 94.7 fl (85-98); Mean Platelet Volume 10.8 fL (7.4-10.4); Monocytes # 1.1 10^3/uL (0.2-0.9); Neutrophils # 6.47 10^3/uL (1.8-7.7); Neutrophils % 74.5 %; Nucleated Red Blood Cells % 0 %; Platelet Count 150 10^3/cmm (157-399); Red Cell Distribution Width 14.4 % (12.1-15.1); White Blood Count 8.69 10^3/uL (3.29-11.43)
[2024-11-13] MEDS: aspirin 325 mg Tablet PO (05:59)
[2024-11-13] MEDS: multivitamin therapeutic Tablet 1 TAB PO (05:59)
[2024-11-13 06:28] LABS: Alanine Aminotransferase 18 U/L (0-33); Albumin Level 3.2 g/dL (3.5-5.2); Alkaline Phosphatase 66 U/L (35-105); Blood Urea Nitrogen 17 mg/dL (8-23); Calcium 8.7 mg/dL (8.5-10.5); Carbon Dioxide 23 mmol/L (22-29); Chloride 107 mmol/L (98-107); Creatinine Clr Calc Pharmacy 28.9642; Globulin 2.7 g/dL (1.3-4.6); Glucose 116 mg/dL (65-115); Magnesium 1.9 mg/dL (1.7-2.3); Osmolality Calculated 291 mOsm/kg (285-295); Phosphorus 2.3 mg/dL (2.5-4.5); Sodium 139 mmol/L (136-145); Total Bilirubin 0.4 mg/dL (0.15-1.2); Total Protein 5.9 g/dL (6.6-8.7)
[2024-11-13 06:31] LABS: Aspartate Amino Transferase 26 U/L (0-32)
[2024-11-13 07:44] VITALS: BP 108/56; PULSE 59; RESP 14; TEMP 36.8; O2SAT 92
[2024-11-13] MEDS: calcium carb-vit d 500mg-200unit 1 Tablet 1 EACH PO ×2 (09:20→18:38)
[2024-11-13] MEDS: cholecalciferol (vitamin D3) 1,000 unit Tablet 1000 UNIT PO (09:21)
[2024-11-13] MEDS: iron polysaccharide complex 150 mg Capsule PO ×2 (09:21→18:39)
[2024-11-13] MEDS: calcium carbonate 500 mg Chew Tablet 1000 MG PO ×2 (09:21→18:38)
[2024-11-13] MEDS: sennosides-docusate Tablet 2 TAB PO ×2 (09:22→18:38)
[2024-11-13] MEDS: mupirocin oint 22 gm 1 APPLIC NASAL ×2 (09:22→18:39)
[2024-11-13] MEDS: chlorhexidine gluconate 0.12% Btl 473 mL 30 ML MUCOUS MEM ×4 (09:23→21:04)
[2024-11-13 11:23] VITALS: BP 127/72; PULSE 89; RESP 16; TEMP 36.6; O2SAT 99
--- NOTE | 2024-11-13 13:23 | PC.SOCIAL ---
IMM Updated Updated pt & family on IMM. No questions voiced. Provided pt a copy. Initialed, dated, & timed a copy & placed in chart.
[2024-11-13] MEDS: memantine 5 mg tablet 10 MG PO ×2 (13:48→18:38)
--- NOTE | 2024-11-13 14:32 | P.PN_ITS ---
Subjective 2 Subjective: Seen with multiple family numbers at bedside. Patient sitting up in bed today. Slightly confused today. As per the nurse and family members did not sleep well overnight. Otherwise hemodynamically stable. Tolerated ORIF well yesterday. Vitals/I&O/Wt Last Vital Signs Temp 97.8 F 11/13/24 11:23 Pulse 89 11/13/24 11:23 Resp 16 11/13/24 11:23 BP 127/72 11/13/24 11:23 Pulse Ox 99 11/13/24 11:23 O2 Del Method Room Air 11/13/24 11:23 O2 Flow Rate 2 11/12/24 15:24 11/12/24 11/13/24 11/13/24 22:59 06:59 14:59 Intake Total 240 / 240 465 / 705 236 / 236 Balance 240 / -660 465 / -195 236 / 236 Weight last 48 hrs Weight 50.802 kg Weight 50.802 kg Weight 51.12 kg Physical Exam 2 Narrative: General: No acute distress, AO x 2 to 3, confused HEENT: PERRLA, pupils bilaterally equal and reactive Chest: Normal vesicular breath sounds, no added sounds, equal good air entry bilaterally CVS: S1-S2 regular, no murmurs, no tachycardia, no gallops, no rubs Abdomen: Soft, nontender, no organomegaly, bowel sounds present Neuro: No focal deficits, no facial deformity, AO x3, power 5/5 in all limbs Urinary Catheter Management: Martínez: Cath Placed During This Visit: yes Reason for Continuing Indwelling Catheter: Perioperative Use in Selected Surgeries Urinary Catheter Date of Insertion: 11/11/24 Urinary Catheter Time of Insertion: 17:00 Data 11/13/24 05:05 11/13/24 05:05 A&P Assessment and plan (1) Closed fracture of right hip: Post mechanical fall. Seen on x-ray. Orthopedic consulted from the ER. Plan for ORIF in a.m. N.p.o. after midnight. Monitor hemoglobin. [place] 5 mg every 6 hour as needed, IV morphine 2 mg IV 4 hours as needed for pain control. Qualifiers: Encounter type: initial encounter Qualified Code(s): S72.001A - Fracture of unspecified part of neck of right femur, initial encounter for closed fracture (2) Dementia: Continue with chronic home medications including Xanax every morning, memantine 10 mg twice daily, sertraline at bedtime. (3) Hypertension: Goal blood pressure less than 140/90 mmHg. Continue with home dose of amlodipine, losartan. Uptitrate as per goal blood pressure. Plan Leukocytosis: Denies any dysuria. Appreciate UA and chest x-ray. Leukocytosis most likely in setting of steroid 20 mg oral daily which she has been taking recently for viral symptoms. Empirically start on IV ceftriaxone for now. If remains afebrile will discontinue next 24 to 48 hours. CODE STATUS: Discussed needed with the patient. Daughter will be the DPOA. Full code. Cardiac diet, n.p.o. after midnight. Heparin 5000 Q12 hourly for DVT prophylaxis Famotidine for PUD prophylaxis Plan for the day: Post-ORIF. Physical therapy, anticoagulation as per surgical team. Restart patient's home anxiety anxiolytic and dementia medications including Xanax every morning, memantine 10 mg twice daily, Remeron 15 nightly, Zoloft 100 nightly. Continue with physical therapy. Monitor hemoglobin. Discharge plan: Discussed in detail with patient's family at bedside. Discussed about home with home health versus SNF. Family wants patient to go back home as they are worried her confusion is [facility] and they state they have multiple family numbers at home to help with physical therapy. Plan to discharge within next 24 hours to home with home health and physical therapy. PDMP PDMP Reviewed: Not Reviewed Attestations 2 Medical Necessity Statement*: Requires further hospitalization for post-ORIF care, confusion in setting of baseline dementia while safe discharge planning is sought Diagnoses Closed fracture of right hip S72.001A Encounter type: initial encounter Dementia F03.90 Hypertension I10
[2024-11-13 15:38] VITALS: BP 113/58; PULSE 116; RESP 17; TEMP 37.5; O2SAT 90
--- NOTE | 2024-11-13 16:28 | P.PN_ITS ---
Subjective 2 Subjective: Patient has no complaints today. She has actually been resting comfortably and has participated in physical therapy today. She is actually did do some steps. Pain is reported to be manage Medications: Reviewed: Yes Vitals/I&O/Wt Last Vital Signs Temp 99.5 F 11/13/24 15:38 Pulse 116 H 11/13/24 15:38 Resp 17 11/13/24 15:38 BP 113/58 11/13/24 15:38 Pulse Ox 90 11/13/24 15:38 O2 Del Method Room Air 11/13/24 15:38 O2 Flow Rate 2 11/12/24 15:24 11/13/24 11/13/24 11/13/24 06:59 14:59 22:59 Intake Total 465 / 705 236 / 236 Balance 465 / -195 236 / 236 Weight last 48 hrs Weight 112 lb Weight 112 lb Weight 112 lb 11.2 oz Physical Exam 2 Narrative: On examination today she is lying flat in bed. Right hip wound dressings are clear she is neurovascularly intact distally. Urinary Catheter Management: Martínez: Cath Placed During This Visit: yes Reason for Continuing Indwelling Catheter: Perioperative Use in Selected Surgeries Urinary Catheter Date of Insertion: 11/11/24 Urinary Catheter Time of Insertion: 17:00 Data 11/13/24 05:05 11/13/24 05:05 A&P Assessment and plan (1) Closed fracture of right hip: Patient is status post endoprosthetic replacement of the right hip secondary to fracture Qualifiers: Encounter type: initial encounter Qualified Code(s): S72.001A - Fracture of unspecified part of neck of right femur, initial encounter for closed fracture Plan Plan at this time is to continue to monitor her vital signs. Monitor her blood count. Continue with physical therapy until she is cleared to be able to discharge home. Plan at this time is the patient will go home with her daughter rather than at a [facility] facility. Discharge planning is working with him for this. PDMP PDMP Reviewed: Not Reviewed Attestations 2 Medical Necessity Statement*: Patient continues to need pain management, assistance with ADLs, and organize physical therapy Coding Level of Care Code Critical Care >/= 30 minutes Diagnoses Closed fracture of right hip S72.001A Encounter type: initial encounter
[2024-11-13] MEDS: docusate sodium 100 mg Capsule PO (18:38)
[2024-11-13] MEDS: NON-FORMULARY MEDICATION (Vit C,E-Zn-Coppr-Lutein-Zeaxan [Preservision Areds-2] 250-90-40- 1 EACH PO (18:40)
[2024-11-13 20:00] VITALS: BP 95/57; PULSE 93; RESP 17; TEMP 37.4; O2SAT 92
[2024-11-13] MEDS: oxybutynin 5 mg Tablet PO (20:46)
[2024-11-13] MEDS: sertraline 100 mg Tablet PO (20:46)
[2024-11-13] MEDS: mirtazapine 15 mg Tablet PO (20:46)
[2024-11-13] MEDS: atorvastatin 40 mg Tablet PO (20:46)
[2024-11-14 02:24] LABS: Basophils % 0.2 %; Eosinophils # 0.4 10^3/uL (0.0-0.8); Eosinophils % 6.1 %; Hematocrit 29.1 % (36-47); Lymphocytes # 1.2 10^3/uL (0.8-4.8); Lymphocytes % 18.2 %; Mean Corpuscular Hemoglobin 29.9 pg (27-33); Mean Corpuscular Volume 93.6 fl (85-98); Mean Platelet Volume 10.4 fL (7.4-10.4); Monocytes # 0.9 10^3/uL (0.2-0.9); Monocytes % 13.4 %; Neutrophils # 3.97 10^3/uL (1.8-7.7); Neutrophils % 61.8 %; Nucleated Red Blood Cells % 0 %; Platelet Count 142 10^3/cmm (157-399); Red Blood Count 3.11 10^6/uL (3.85-5.65); Red Cell Distribution Width 14.5 % (12.1-15.1); White Blood Count 6.42 10^3/uL (3.29-11.43)
[2024-11-14 02:54] LABS: Alanine Aminotransferase 8 U/L (0-33); Albumin Level 2.8 g/dL (3.5-5.2); Alkaline Phosphatase 59 U/L (35-105); Anion Gap 7.9 (5-19); Aspartate Amino Transferase 16 U/L (0-32); Blood Urea Nitrogen 19 mg/dL (8-23); Calcium 9.1 mg/dL (8.5-10.5); Carbon Dioxide 27 mmol/L (22-29); Chloride 106 mmol/L (98-107); Creatinine Clr Calc Pharmacy 43.4463; Globulin 2.5 g/dL (1.3-4.6); Glucose 120 mg/dL (65-115); Magnesium 1.8 mg/dL (1.7-2.3); Osmolality Calculated 287 mOsm/kg (285-295); Phosphorus 1.9 mg/dL (2.5-4.5); Potassium 3.9 mmol/L (3.5-5.1); Sodium 137 mmol/L (136-145); Total Bilirubin 0.3 mg/dL (0.15-1.2); Total Protein 5.3 g/dL (6.6-8.7)
[2024-11-14 03:39] VITALS: PULSE 103
[2024-11-14 04:00] VITALS: BP 119/65; PULSE 100; RESP 18; TEMP 36.8; O2SAT 90
[2024-11-14] MEDS: aspirin 325 mg Tablet PO (05:04)
[2024-11-14] MEDS: ALPRAZolam 0.5 mg Tablet 0.25 MG PO (05:04)
[2024-11-14] MEDS: multivitamin therapeutic Tablet 1 TAB PO (05:04)
[2024-11-14 06:24] VITALS: PULSE 95
[2024-11-14 07:22] VITALS: BP 122/62; PULSE 90; RESP 16; TEMP 37.3; O2SAT 94
[2024-11-14] MEDS: calcium carb-vit d 500mg-200unit 1 Tablet 1 EACH PO (08:55)
[2024-11-14] MEDS: memantine 5 mg tablet 10 MG PO (08:56)
[2024-11-14] MEDS: calcium carbonate 500 mg Chew Tablet 1000 MG PO (08:56)
[2024-11-14] MEDS: sennosides-docusate Tablet 2 TAB PO (08:56)
[2024-11-14] MEDS: iron polysaccharide complex 150 mg Capsule PO (08:56)
[2024-11-14] MEDS: pantoprazole DR 40 mg Tablet PO (08:56)
[2024-11-14] MEDS: cholecalciferol (vitamin D3) 1,000 unit Tablet 1000 UNIT PO (08:56)
[2024-11-14] MEDS: docusate sodium 100 mg Capsule PO (08:56)
[2024-11-14] MEDS: NON-FORMULARY MEDICATION (Vit C,E-Zn-Coppr-Lutein-Zeaxan [Preservision Areds-2] 250-90-40- 1 EACH PO (08:58)
[2024-11-14] MEDS: chlorhexidine gluconate 0.12% Btl 473 mL 30 ML MUCOUS MEM (09:40)
[2024-11-14] MEDS: mupirocin oint 22 gm 1 APPLIC NASAL (09:41)
--- NOTE | 2024-11-14 11:08 | PM.DCS ---
Discharge Providers Date of Admission: 11/11/24 18:49 Date of Discharge: November 14, 2024 Attending Provider at Admission: Lonnie Avendano MD Attending Provider at Discharge: Lonnie Avendano MD Consults: Orthopedics: Dr. Garcia Primary Care Provider: Paulina Brewster DO Diagnoses at Discharge Discharge Diagnosis (1) Closed fracture of right hip: Status: Acute Qualifiers: Encounter type: initial encounter Qualified Code(s): S72.001A - Fracture of unspecified part of neck of right femur, initial encounter for closed fracture Reason for Visit Reason for Visit: Fall Hospital Course Hospital Course Molly Rolle is a 84 year old female with past medical history of hypertension, dementia who presents to the ER today after having mechanical fall while trying to get out of the recliner and fell on the right side after which side having pain in her right hip. Found to have right subcapital femoral fracture. Patient was admitted to the hospital further evaluation management. Orthopedics was consulted. She underwent ORIF on 11/12. Hospitalization was otherwise unremarkable. She worked appropriately with physical therapy. Safe discharge plan associated with patient and patient's family members at bedside. Family decided to take patient home with home health to prevent her from having worsening mentation given her baseline dementia at an unfamiliar place. Physical Exam Narrative: General: No acute distress, AO x 2 to 3, confused HEENT: PERRLA, pupils bilaterally equal and reactive Chest: Normal vesicular breath sounds, no added sounds, equal good air entry bilaterally CVS: S1-S2 regular, no murmurs, no tachycardia, no gallops, no rubs Abdomen: Soft, nontender, no organomegaly, bowel sounds present Neuro: No focal deficits, no facial deformity, AO x3, power 5/5 in all limbs Urinary Catheter Management: Martínez: Cath Placed During This Visit: yes Reason for Continuing Indwelling Catheter: Perioperative Use in Selected Surgeries Urinary Catheter Date of Insertion: 11/11/24 Urinary Catheter Time of Insertion: 17:00 Discharge Data Studies Completed and Pending Completed Studies During Hospitalization Category Date Time Status XR chest 1V portable [id number] Stat Exams 11/11/24 14:12 Completed XR hip RT 2-3V wo/w pel* [id number] Routine Exams 11/12/24 14:58 Completed XR hip RT 2-3V wo/w pel* [id number] Stat Exams 11/11/24 13:43 Completed Pending at discharge Category Date Time Status Complete Blood Count w/Auto AM LABS Lab 11/15/24 04:00 Ordered Radiology Impressions Chest X-Ray 11/11/24 14:12 IMPRESSION: Stable chest without acute abnormality. Hip/Pelvis X-Ray 11/12/24 14:58 IMPRESSION: Right hip arthroplasty as above. Laboratory Results WBC 6.42 10^3/uL (3.29-11.43) 11/14/24 02:09 RBC 3.11 10^6/uL (3.85-5.65) L 11/14/24 02:09 Hgb 9.30 g/dL (11.27-16.99) L 11/14/24 02:09 Hct 29.1 % (36-47) L 11/14/24 02:09 MCV 93.6 fl (85-98) 11/14/24 02:09 MCH 29.9 pg (27-33) 11/14/24 02:09 MCHC 32.0 g/dL (30-55) 11/14/24 02:09 RDW 14.5 % (12.1-15.1) 11/14/24 02:09 Plt Count 142 10^3/cmm (157-399) L 11/14/24 02:09 MPV 10.4 fL (7.4-10.4) 11/14/24 02:09 Neut % (Auto) 61.8 % 11/14/24 02:09 Lymph % (Auto) 18.2 % 11/14/24 02:09 [place] % (Auto) 13.4 % 11/14/24 02:09 Eos % (Auto) 6.1 % 11/14/24 02:09 Baso % (Auto) 0.2 % 11/14/24 02:09 Neut # (Auto) 3.97 10^3/uL (1.8-7.7) 11/14/24 02:09 Lymph # (Auto) 1.2 10^3/uL (0.8-4.8) 11/14/24 02:09 [place] # (Auto) 0.9 10^3/uL (0.2-0.9) 11/14/24 02:09 Eos # (Auto) 0.4 10^3/uL (0.0-0.8) 11/14/24 02:09 Baso # (Auto) 0.0 10^3/uL (0.0-0.1) 11/14/24 02:09 Nucleated RBC % (auto) 0 % 11/14/24 02:09 Nucleated RBCs # 0.0 /100WBC 11/14/24 02:09 PT 12.90 SECONDS (12.1-14.9) 11/11/24 14:49 INR 0.91 (0.8-1.2) 11/11/24 14:49 Sodium 137 mmol/L (136-145) 11/14/24 02:09 Potassium 3.9 mmol/L (3.5-5.1) 11/14/24 02:09 Chloride 106 mmol/L (98-107) 11/14/24 02:09 Carbon Dioxide 27 mmol/L (22-29) 11/14/24 02:09 Anion Gap 7.9 (5-19) 11/14/24 02:09 BUN 19 mg/dL (8-23) 11/14/24 02:09 Creatinine 0.8 mg/dL (0.5-0.9) 11/14/24 02:09 GFR Calculation Not Reportable 11/14/24 02:09 Glucose 120 mg/dL (65-115) H 11/14/24 02:09 Estimat Average Glucose 100 11/11/24 20:49 Hemoglobin A1c 5.1 % (4.0-6.0) 11/11/24 20:49 Calculated Osmolality 287 mOsm/kg (285-295) 11/14/24 02:09 Lactic Acid 0.8 mmol/L (0.5-2.2) 11/11/24 14:49 Calcium 9.1 mg/dL (8.5-10.5) 11/14/24 02:09 Phosphorus 1.9 mg/dL (2.5-4.5) L 11/14/24 02:09 Magnesium 1.8 mg/dL (1.7-2.3) 11/14/24 02:09 Iron 27 ug/dL (37-145) L 11/11/24 20:49 TIBC 226 mcg/dl 11/11/24 20:49 % Saturation 11.9 % (20-50) L 11/11/24 20:49 Unsat Iron Binding 199 ug/dL (112-347) 11/11/24 20:49 Total Bilirubin 0.3 mg/dL (0.15-1.2) 11/14/24 02:09 AST 16 U/L (0-32) 11/14/24 02:09 ALT 8 U/L (0-33) 11/14/24 02:09 Alkaline Phosphatase 59 U/L (35-105) 11/14/24 02:09 Troponin T Baseline 12 ng/L (0-10) H 11/11/24 14:49 Troponin T 120 Minute 10.31 ng/L (0-10) H 11/11/24 16:34 Delta Troponin T -1.69 ABS# (0-10) L 11/11/24 16:34 Troponin T Hi Sens 6Hr 14.87 ng/L (0-10) H 11/11/24 20:49 Troponin T Hi Sens 6Hr Delta 2.87 ng/L (0-12) 11/11/24 20:49 Total Protein 5.3 g/dL (6.6-8.7) L 11/14/24 02:09 Albumin 2.8 g/dL (3.5-5.2) L 11/14/24 02:09 Globulin 2.5 g/dL (1.3-4.6) 11/14/24 02:09 Triglycerides 90 mg/dL (0-150) 11/12/24 04:35 Cholesterol 114 mg/dL (0-200) 11/12/24 04:35 LDL Cholesterol, Calc 31 mg/dL (50-129) L 11/12/24 04:35 HDL Cholesterol 65 mg/dL (60-100) 11/12/24 04:35 LDL/HDL Ratio 0.48 RATIO (0.00-3.22) 11/12/24 04:35 Cholesterol/HDL Ratio 1.75 mg/dL (0.0-4.40) 11/12/24 04:35 Vitamin B12 609 pg/mL (232-1245) 11/11/24 20:49 Folate > 20.0 ng/mL (4.8-37.3) 11/12/24 04:35 Procalcitonin 0.35 ng/mL (0-0.5) 11/12/24 04:35 TSH 2.54 uIU/mL (0.27-4.20) 11/11/24 20:49 Urine Color Yellow (Yellow) 11/11/24 17:00 Urine Appearance Clear (CLEAR) 11/11/24 17:00 Urine pH 6 (5-7) 11/11/24 17:00 Ur Specific [place] 1.020 (1.005-1.030) 11/11/24 17:00 Urine Protein Neg (Negative) 11/11/24 17:00 Urine Glucose (UA) Norm (Normal) 11/11/24 17:00 Urine Ketones Negative (Negative) 11/11/24 17:00 Urine Blood Neg (Negative) 11/11/24 17:00 Urine Nitrate Negative (Negative) 11/11/24 17:00 Urine Bilirubin Neg (Negative) 11/11/24 17:00 Urine Urobilinogen Norm mg/dL (Negative) 11/11/24 17:00 Ur Leukocyte Esterase Negative (Negative) 11/11/24 17:00 Amorphous Sediment Not Reportable 11/11/24 17:00 Vitals Last Vital Signs Temp 99.1 F 11/14/24 07:22 Pulse 90 11/14/24 07:22 Resp 16 11/14/24 07:22 BP 122/62 11/14/24 07:22 Pulse Ox 94 11/14/24 07:22 O2 Del Method Room Air 11/14/24 07:22 O2 Flow Rate 2 11/12/24 15:24 Discharge Plan Discharge Patient Disposition: Home Condition: Stable Prescriptions: New tramadol 50 mg tablet 50 mg PO Q8H PRN (Reason: pain) Qty: 14 0RF Continued aspirin 325 mg tablet 325 mg PO QAM alprazolam 0.5 mg tablet 0.25 mg PO QAM memantine 10 mg tablet 10 mg PO BID mirtazapine 15 mg tablet 15 mg PO BEDTIME sertraline 100 mg tablet 100 mg PO BEDTIME oxybutynin chloride 5 mg tablet 5 mg PO BEDTIME atorvastatin 40 mg tablet 40 mg PO BEDTIME amlodipine 5 mg tablet 2.5 mg PO BEDTIME potassium citrate 99 mg capsule 99 mg PO BEDTIME cetirizine [Zyrtec] 10 mg tablet 10 mg PO DAILY PRN (Reason: allergies) calcium carbonate-vitamin D3 [Calcium 600 with Vitamin D3] 600 mg-12.5 mcg (500 unit) capsule 1 cap PO BID albuterol sulfate 2.5 mg /3 mL (0.083 %) solution for nebulization 2.5 mg inhalation Q4H PRN (Reason: shortness of breath or wheezing) Qty: 90 0RF multivitamin Tablet 1 tab PO QAM polyethylene glycol 3350 [Miralax] 17 gram/dose Powder 7.5 g PO BEDTIME PreserVision AREDS-2 250-90-40-1 mg Capsule 1 tab PO BID turmeric root extract 500 mg Tablet 500 mg PO BID Discontinued prednisone 20 mg tablet 20 mg PO DAILY 5 Days Qty: 5 0RF losartan 50 mg tablet 50 mg PO QAM Discharge Orders: Discharge Order (Routine); Ordered 11/14/24 Ordered By: Lonnie Avendano Referrals: Oniel Garcia MD [Physician] - 3 weeks Paulina Brewster DO [Primary Care Provider] - 2 weeks (We have notified your physician's clinic of the need for a follow-up appointment to be scheduled. If you have not heard from them within the next 2 business days, please call them directly. ) Discharge Diet: Cardiac Discharge Activity: Resume usual activity and Increase activity as tolerated Patient Instructions: Acute Wound Care (DC), Fall Prevention (GEN), Hip Fracture (GEN), Hip Abduction Pillow (GEN), Opioid Safety, Post Anesthesia Care Discharge Attestations Time Spent in Discharge Care*: greater than 30 min Specific Discharge Activities: educating and/or supporting family/caregiver, discussing with pcp/other providers, discussing with returned case inspector/social workers/dc planners, documenting/other paperwork and evaluating patient/reviewing data Status at Discharge: Cognitive status at discharge: cognitively intact, Behavioral status at discharge: cooperative, Functional status at discharge: uses cane/walker, Overall status at discharge: patient is progressing back to baseline Quality Metrics Clinical Quality Measures [ No reported AMI, CVA or VTE this stay] Coding Level of Care Code 79576 Total time (in minutes) for Discharge: 60 Diagnoses Closed fracture of right hip S72.001A Encounter type: initial encounter
[2024-11-14 11:16] VITALS: BP 103/60; PULSE 93; RESP 16; TEMP 36.8; O2SAT 96
--- NOTE | 2024-11-14 12:18 | P.PN_ITS ---
Subjective 2 Subjective: Patient is up to the chair and eating her lunch. She has no complaints at this time. Indicates has been up and ambulating. She is also done steps. Otherwise doing quite well. Pain control is under control Medications: Reviewed: Yes Vitals/I&O/Wt Last Vital Signs Temp 98.3 F 11/14/24 11:16 Pulse 93 11/14/24 11:16 Resp 16 11/14/24 11:16 BP 103/60 11/14/24 11:16 Pulse Ox 96 11/14/24 11:16 O2 Del Method Room Air 11/14/24 11:16 O2 Flow Rate 2 11/12/24 15:24 11/13/24 11/14/24 11/14/24 22:59 06:59 14:59 Intake Total 120 / 120 Balance 120 / 120 Weight last 48 hrs Weight 128 lb Weight 112 lb Physical Exam 2 Narrative: On exam wound is healing well with the dressings in place. She is neurovascular intact right lower extremity Urinary Catheter Management: Martínez: Cath Placed During This Visit: yes Reason for Continuing Indwelling Catheter: Perioperative Use in Selected Surgeries Urinary Catheter Date of Insertion: 11/11/24 Urinary Catheter Time of Insertion: 17:00 Data 11/14/24 02:09 11/14/24 02:09 A&P Assessment and plan (1) Hip fracture, right: Patient is status post endoprosthetic replacement of the right hip. Progressing very well Qualifiers: Encounter type: initial encounter Fracture type: closed Qualified Code(s): S72.001A - Fracture of unspecified part of neck of right femur, initial encounter for closed fracture Plan Plan at this time is that from an orthopedic standpoint she can be discharged home. She plans on going home with her daughter and they have everything arranged for equipment and a place to stay. They may do daily dressing changes with dry gauze and tape. They should cover the wound for showering. I will follow-up with her in 3 weeks for repeat evaluation and staple removal PDMP PDMP Reviewed: Not Reviewed Attestations 2 Medical Necessity Statement*: Patient has been in need of physical therapy as well as pain medication. However at this time may be discharged home Coding Level of Care Code Critical Care >/= 30 minutes Diagnoses Closed fracture of right hip, initial encounter S72.001A Encounter type: initial encounter Fracture type: closed
[2024-11-14 14:27] VITALS: BP 103/60; PULSE 93; RESP 16; TEMP 36.8; O2SAT 96
--- NOTE | 2024-11-14 15:34 | PC.NURSE ---
Discussed discharge with patient and both daughters. Went over all medications, new, continued and stopped. Gave daughter script for Tramadol. Discussed signs and symptoms of infection and follow up appointments with family. All parties verbalized understanding.
== END 2024-11-14 14:45 | disposition home health service (06) | DRG 522 ==
LOC: ER 17:20 → MEDSURG 18:50
PROVIDERS: Orthopaedic Surgery; Admitting Provider Student in an Organized Health Care Education/Training Program; Emergency Provider Emergency Medicine; PCP Family Medicine; Visit Provider Student in an Organized Health Care Education/Training Program
PROC: 0SRR0JZ Replacement of Right Hip Joint, Femoral Surface with Synthetic Substitute, Open Approach (ICD-10-PCS; principal; 2024-11-12 16:00)
DX: S72.011A Unspecified intracapsular fracture of right femur, initial encounter for closed fracture (principal); F03.94 Unspecified dementia, unspecified severity, with anxiety; W18.30XA Fall on same level, unspecified, initial encounter; Y92.009 Unspecified place in unspecified non-institutional (private) residence as the place of occurrence of the external cause; I10 Essential (primary) hypertension; E78.5 Hyperlipidemia, unspecified; Z86.73 Personal history of transient ischemic attack (TIA), and cerebral infarction without residual deficits; Z79.82 Long term (current) use of aspirin
CPT/HCPCS: 36415; 51702; 71045; 73502; 80053; 80061; 81003; 82607; 82746; 83036; 83540; 83550; 83605; 83735; 84100; 84145; 84443; 84484; 85025; 85610; 93005; 94664; 96372; 97116; 97161; 97165; 97530; 99285; C1776; J0330; J0690; J0696; J1100; J1644; J2270; J2371; J2405; J2704; J3010; J3480; J3490; J7512; J9999

== ENCOUNTER → 2024-11-24 11:37 | Outpatient (BNVA) | payer MEDICARE, SELFPAY | PROVIDERS: PCP Family Medicine; Visit Provider Orthopaedic Surgery | DX: Z98.890 Other specified postprocedural states (principal); Z96.651 Presence of right artificial knee joint | CPT/HCPCS: 99024 ==

== ENCOUNTER → 2025-06-21 15:27 | Outpatient (BNVA) | payer MEDICARE, SELFPAY | PROVIDERS: PCP Family Medicine; Visit Provider Nurse Practitioner Family | DX: S50.911A Unspecified superficial injury of right forearm, initial encounter (principal); L82.1 Other seborrheic keratosis; L81.4 Other melanin hyperpigmentation; L57.8 Other skin changes due to chronic exposure to nonionizing radiation; D69.2 Other nonthrombocytopenic purpura; L82.0 Inflamed seborrheic keratosis; L29.89 Other pruritus; R20.8 Other disturbances of skin sensation; R58 Hemorrhage, not elsewhere classified; L53.8 Other specified erythematous conditions; Z78.9 Other specified health status | CPT/HCPCS: 17110; 99213 ==